=== PATIENT | female | born 2000 | race Caucasian/White ===

== ENCOUNTER 2020-06-11 05:48 | Day surgery (SDC) | payer BC, SELFPAY ==
[2020-05-18 14:30] VITALS: BMI 22.6
[2020-06-11] VITALS (8 sets, daily range): BP systolic 129–144; BP diastolic 69–88; PULSE 101–120; RESP 14–18; TEMP 36.2–36.9; O2SAT 95–100; BMI 23.5
[2020-06-11 06:26] LABS: Internal QC Validated? YES +Cl - CLEAR BKGD; Pregnancy, Urine Negative Negative
[2020-06-11] MEDS: Lactated Ringers 1,000 ML 100 ML IV ×2 (06:41→10:30)
[2020-06-11] MEDS: Epinephrine (1 mg/ml) 1 MG/ML VIAL ×2 (06:45→09:00)
--- NOTE | 2020-06-11 07:00 | HP_ITS ---
Intake Vital Signs 05/18/20 Height 5 ft 6 in 05/18/20 Weight: 140 lb 05/18/20 BMI 22.6 Intake Visit Reasons: LEFT KNEE Accompanied by: Parents Is patient in pain?: Yes Pain scale (1-10): 7 Allergies No Known Allergies Allergy (Verified 09/18/15 14:41) Medications norethindrone 1 mg-ethinyl estradiol 35 mcg tablet ea PO 05/18/20 [History Confirmed 05/18/20] Is last menstrual period known: Yes Post menopausal: No Patient : No PFSH Medical History (Updated 05/18/20 @ 14:31 by Gabriela Ansari) Hx of febrile seizure (Inactive) Social History (Updated 05/25/20 @ 16:[address] Susana Nathan DO) Smoking Status: Never smoker alcohol intake: never what type of physical activity do you participate in: running, weight training frequency: daily HPI LEFT KNEE: Details: Parts of this documentation were recorded by a scribe, this documentation accurately reflects the service provided and the decisions made by me, Dr. Susana Nathan DO 05/18/20 1375. VASQUEZ MARIE is a 19 year old F here today as a NEW patient because she has a possible left ACL tear. This initially happened 3 weeks ago during a soccer game. She was running and she states that she cut weird and she felt a pop. She was on the ground and when she got back up and tried to run again and she had significant pain so she could not run. Saw Dr. Steiner at her school and he advised an xray and MRI. After the MRI she was advised that it was torn and needed to see an orthopedic surgeon. Over the past 3 weeks she has been seeing the strainer mill operator to keep her strength up before possible surgery. She states that it was originally it was swollen and painful, the swelling has subsided.. She has been icing, ibuprofen, elevating. Denies any previous injury or surgery to that leg. Ortho Exam General General: Yes no acute distress, Yes well groomed Neurologic: Yes alert, Yes oriented x3 Psychologic: Yes reasonable and appropriate Left Knee Skin/Wound: No ecchymosis, No erythema, Yes swelling Contralateral Normal: Yes Homans Sign: No Knee ROM: Yes ROM-Extension -20 to 0, Yes ROM-Flexion 0-140 Quad Atrophy: Yes (minimal) Stability: NML: Dial 30 Assessment & Plan Problems 1. Left ACL tear S83.512A Plan - Dr. Susana Nathan, DO MRI that patient brought on disc was reviewed. [facility] faxed the MRI report while the patient was in the office. Explained to the patient that she has an ACL tear. Explained the surgery and the risks, benefits, graft types, post op course. Discussed that her taking control increases her risk of blood clots. Advised that she must be off of her control for 1 month prior to surgery and 6 weeks after surgery. She can continue with the strainer mill operator doing prehab to continue strengthening. Return to sports will not be before 9 months. 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 Will schedule tentatively for surgery 06/11/20. Patient's questions and concerns were answered. She should call with any worsening signs/ symptoms. Patient is in agreement with the plan. Coding Level of Care Code Off vis,new,level 3 Diagnoses Left ACL tear S83.512A
[2020-06-11] MEDS: Cefazolin 2 GM in 0.9% Normal Saline 100 ML IV (07:30)
--- NOTE | 2020-06-11 07:40 | HP.PCM_ITS ---
History and Physical insert HNP no changes. VASQUEZ MARIE 19 F 2000 Sign [facility] [id number] [phone] OFFICE VISITDate of Service: 05/18/20 MR#:[id number]: VASQUEZ MARIERep #:[id number]:2000 Provider:Dr. Susana Nathan DOAge/Sex: 19/F [facility] [place] [place] Intake Vital Signs 05/18/20 Height 5 ft 6 in 05/18/20 Weight: 140 lb 05/18/20 BMI 22.6 Intake Visit Reasons: LEFT KNEE Accompanied by: Parents Is patient in pain?: Yes Pain scale (1-10): 7 Allergies No Known Allergies Allergy (Verified 09/18/15 14:41) Medications norethindrone 1 mg-ethinyl estradiol 35 mcg tablet ea PO 05/18/20 [History Confirmed 05/18/20] Is last menstrual period known: Yes Post menopausal: No Patient : No PFSH Medical History (Updated 05/18/20 @ 14:31 by Gabriela Ansari) Hx of febrile seizure (Inactive) Social History (Updated 05/25/20 @ 16:[address] Susana Nathan DO) Smoking Status: Never smoker alcohol intake: never what type of physical activity do you participate in: running, weight training frequency: daily HPI LEFT KNEE: Details: Parts of this documentation were recorded by a scribe, this documentation accurately reflects the service provided and the decisions made by me, Dr. Susana Nathan DO 05/18/20 1003. VASQUEZ MARIE is a 19 year old F here today as a NEW patient because she has a possible left ACL tear. This initially happened 3 weeks ago during a soccer game. She was running and she states that she cut weird and she felt a pop. She was on the ground and when she got back up and tried to run again and she had significant pain so she could not run. Saw Dr. Steiner at her school and he advised an xray and MRI. After the MRI she was advised that it was torn and needed to see an orthopedic surgeon. Over the past 3 weeks she has been seeing the equestrian trainer to keep her strength up before possible surgery. She states that it was originally it was swollen and painful, the swelling has subsided.. She has been icing, ibuprofen, elevating. Denies any previous injury or surgery to that leg. Ortho Exam General General: Yes no acute distress, Yes well groomed Neurologic: Yes alert, Yes oriented x3 Psychologic: Yes reasonable and appropriate Left Knee Skin/Wound: No ecchymosis, No erythema, Yes swelling Contralateral Normal: Yes Homans Sign: No Knee ROM: Yes ROM-Extension -20 to 0, Yes ROM-Flexion 0-140 Quad Atrophy: Yes (minimal) Stability: NML: Dial 30 neg tono's sign Assessment & Plan Problems 1. Left ACL tear S83.512A Plan - Dr. Susana Nathan, DO MRI that patient brought on disc was reviewed. [facility] faxed the MRI report while the patient was in the office. Explained to the patient that she has an ACL tear. Explained the surgery and the risks, benefits, graft types, post op course. Discussed that her taking control increases her risk of blood clots. Advised that she must be off of her control for 1 month prior to surgery and 6 weeks after surgery. She can continue with the equestrian trainer doing prehab to continue strengthening. Return to sports will not be before 9 months. 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 Will schedule tentatively for surgery 06/11/20. Patient's questions and concerns were answered. She should call with any worsening signs/ symptoms. Patient is in agreement with the plan. Coding Level of Care Code Off vis,new,level 3 Diagnoses Left ACL tear S83.512A 05/25/20 1601<Electronically signed by Susana Nathan DO>Date Susana Nathan DO 05/27/20 0831<Electronically signed by Nuzhat NAYLOR>Cosigner Signature:Date (if applicable)Nuzhat Avelar CC: ~
--- NOTE | 2020-06-11 07:43 | PCM.DC ---
Discharge Instructions Outpatient Procedure Reason For Visit: L KNEE ARTHROSCOPY ACL RECONSTRUCTION WITH QUAD AU Follow Up Care Test Results: Test results from this visit will be discussed in further detail at your follow-up appointment, if applicable. Discharge Plan Admission Attending Provider: Susana Nathan Primary Care Provider: Derick Carlson Discharge Orders/Prescriptions Prescriptions: New oxycodone 5 mg capsule 5 mg PO Q6H PRN (Reason: pain) 4 Days Qty: 30 RF: 0 ondansetron HCl [Zofran] 4 mg tablet 4 mg PO Q8H PRN (Reason: nausea and vomiting) 7 Days Qty: 14 RF: 0 No Action norethindrone-ethin estradiol 1-35 mg-mcg tablet 1 ea PO DAILY RF: 0 Referrals: Derick Carlson MD [Primary Care Provider] - Disposition Discharge Orders: Discharge Patient (Routine); Ordered 06/11/20 Ordered By: Dr. Susana Nathan
--- NOTE | 2020-06-11 09:57 | PCM.DC ---
Discharge Instructions Outpatient Procedure Reason For Visit: L KNEE ARTHROSCOPY ACL RECONSTRUCTION WITH QUAD AU Follow Up Care Test Results: Test results from this visit will be discussed in further detail at your follow-up appointment, if applicable. brace locked in extension while ambulating and at night, make unlock brace and move as tolerated, follow up next week for dressing change, ice/elevate/ankle pumps as discussed, call with calf pain, or other concerns Discharge Plan Admission Attending Provider: Susana Nathan Primary Care Provider: Derick Carlson Discharge Orders/Prescriptions Prescriptions: New oxycodone 5 mg capsule 5 mg PO Q6H PRN (Reason: pain) 4 Days Qty: 30 RF: 0 ondansetron HCl [Zofran] 4 mg tablet 4 mg PO Q8H PRN (Reason: nausea and vomiting) 7 Days Qty: 14 RF: 0 No Action norethindrone-ethin estradiol 1-35 mg-mcg tablet 1 ea PO DAILY RF: 0 Referrals: Derick Carlson MD [Primary Care Provider] - Disposition Discharge Orders: Discharge Patient (Routine); Ordered 06/11/20 Ordered By: Dr. Susana Nathan
--- NOTE | 2020-06-11 09:58 | OP.PCM_ITS ---
Report of Operation Date of Procedure: 06/11/20 Pre-Operative Diagnosis: left acl tear Post-Operative Diagnosis: same Surgery/Procedure Performed:: left acl reconstruction with quad tendon autograft business department chair: Nik Krishnamurthy business department chair: Nuzhat Avelar Type of Anesthesia: General/Regional Anesthesiologist: Derrick Hardy Drains: none Estimated Blood Loss (mL): min Fluids Replaced: 1000ml lr Description of Procedure: Preop note Patient is a 19-year-old female who sustained an pivoting injury to her low left knee. MRI confirms complete ACL tear family [place] [facility] and wanted her knee reconstruction done locally. Patient was on control she stopped about 3- 1/2 to 4 weeks ago. Patient had a negative dial test but a positive drawer and a positive Geno's on physical exam. We discussed risk benefits and alternatives surgery. Risks including but not limited to blood loss, blood clot, infection, neurovascular, arthrofibrosis, failure procedure, loss of life and loss of limb. We will proceed with left ACL reconstruction repair as indicated patient will also go on blood thinners and closely monitor any signs symptoms of blood clots in her calves. She will also be on aspirin 325 twice daily postop day 1. Also discussed the importance of getting maintaining full extension and discussed really working on that the next 4 to 5 days. Operative note Patient seen and examined preoperative holding area. Left knee was marked. Patient brought to the operating room and placed supine on the operating table. Signing, anesthesia, antibiotics were ministered. All bony promises well-padded SCDs placed on her contralateral limb. Then prepped and draped the left knee and normal standard fashion. We marked out her incisions for portal placement and our graft procurement as well as her tunnel incisions. We then pivoted the knee she did have a positive pivot test. We began our graphic treatment. We made about a 3 and half centimeter incision starting at the proximal pole of patella extending proximally use a 15 blade dissected down with Metzenbaums to the level of the peritenon the peritenon was completely excised were then able to visualize the quad tendon we then visualize the direction and laterally and marked it about 7 cm proximally for him and guide for cut. We then use a 9 mm cutting Arthrex double knife to make our graft sides we started at the patella and proceeded proximally. We then truncated the graft at the patella side and then sequentially brought and finished the cut on the undersurface of ensuring to not invade the capsule. After procuring our graft in standard technique we prepared on the back table in standard fashion. Began our diagnostic arthroscopy. Created anterior lateral portal. The patellofemoral joint was intact there were no loose bodies or any issues with in the medial anteromedial thigh the medial and lateral recesses. We then moved to the medial anteromedial joint line where an anteromedial portal was created under direct visualization. We then probed probed the medial lateral meniscus which were intact and stable to probing. The medial femoral condyle lateral femoral condyle medial medial tibial plateau lateral tibial plateau were all intact stable probing. The ACL was obviously torn the PCL was intact. We then debrided back the stump of the ACL using shaver brake coupler road freight and then performed a minimal of notchplasty this is able to be able to get the drill guide for femoral tunnel. We then placed our scope in the medial portal our guide to the lateral portal but in the knee to 90 degrees made our incision on the lateral aspect ensuring to be on the top of the IT band nicely down with hemostat down the IT band mid small sit in the IT band and then placed our guide on the lateral aspect of the distal femur. We then drilled our tunnel we had measured the graft in the back table to be 9 mm. We then use our flip cutter and drilled back about an joule back with 25 then placed our suture in standard technique through the tunnel and irrigated out any loose bony debris. We then made our tibial move to our tibial tunnel. Placed a passport in the anteromedial portal and then placed in want visualizing from the anterior lateral portal we placed our tibial guide the main incision in the proximal tibia use a 15 blade to cut through the skin dissected down to the tibial bony surface we then drilled with our hot knife cutter flipped it back to 9 and then retrocut for about 30 mm we then irrigated with copious amounts of sterile saline any bony debris and placed our passing suture. We then brought the graft on the back table placed it through for the femoral side flipped the button and then were able to palpate the [place] button on the lateral femoral cortex. We then brought the graft through the tibial tunnel and then used the button to stick to secured on the tibial side as well. Prior to fixating the tibial side we did cycle the graft about 20 times in order to get any treatment of the graft. We then placed the knee in full extension and then were able to bring the button down to bone and then over tied the button and then truncated the stitches accordingly. We then irrigated all skin incisions with copious amounts of sterile saline the larger incisions were closed with interrupted 3-0 Vicryl and the skin with 4-0 nylon and the portals were closed with 4-0 nylon as well. Sterile dressings were applied tourniquet was deflated. Patient t olerated procedure well no complications transferred recovery room in stable condition. Patient will also had discussed getting a postop regional block. Patient be toe-touch weightbearing for 2 weeks Postop note Elevate ice ankle pumps Brace locked in extension during ambulation and at night Aspirin 325 bid to start tomorrow Toe-touch weightbearing Follow-up next week Call with increased pain numbness tingling or if there are issues arise Discussed risks and signs of a blood clot with family This note was generated with [employer] dictation software. It may contain incorrect words, spelling, and punctuation that were not noted in checking the note before signing.
[2020-06-11] MEDS: Mupirocin Ointment 22gm Tube 1 APPLIC (10:00)
[2020-06-11] MEDS: HYDROcodone Bitartrate/Apap 5/325 Tablet PO (12:46)
== END 2020-06-11 13:54 ==
LOC: SDC 05:48 → AC 05:49
PROVIDERS: Anesthesiology; PCP Pediatrics; Referring Provider Orthopaedic Surgery; Visit Provider Orthopaedic Surgery
PROC: (CPT 29888; principal; 2020-06-11 07:10)
DX: S83.512A Sprain of anterior cruciate ligament of left knee, initial encounter (principal); X58.XXXA Exposure to other specified factors, initial encounter; Y93.02 Activity, running; Z87.898 Personal history of other specified conditions
CPT/HCPCS: 01400; 29866; 29888; 64447; 81025; 87426; C9803; J7120; J2405

== ENCOUNTER 2020-07-13 09:00 | Outpatient (RCR) | payer BC, SELFPAY ==
[2020-07-08 12:59] VITALS: BMI 23.5
--- NOTE | 2020-07-13 09:00 | BH.SGPN.GN ---
Behaviors/Verbalizations/Mental Status: [] Eye contact is good. Motor activity is appropriate. Appearance is casual. Speech is Appropriate. Mood is depressed. Affect is flat. Thoughts are linear and logical. No evidence of psychosis. Reviewed daily check in sheet and no reports of suicidal ideations or intent. Client Response/Progress/Benefit: [] Pt participated when prompted. This was pt's first day in IOP and she did not speak much. 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 Group was support and provided feedback and advice for her first day and week in IOP. Pt was receptive. Limited benefit as this was pt's first day in IOP. Will continue in IOP to maintain safety, increase healthy coping skills, and improve functioning. Narrative Note: []
--- NOTE | 2020-07-13 09:00 | BH.COMM_ITS ---
Communication Note - Communication with Client Communication Note: Met with pt to complete initial paperwork. No significant changes since pre-admission screening. Compelted [place] Suicide Screening. Moderate risk. No active SI.
--- NOTE | 2020-07-13 10:10 | BH.SGPN.GN ---
Behaviors/Verbalizations/Mental Status: [] Eye contact is good. Motor activity is appropriate. Appearance is casual. Speech is Appropriate. Mood is depressed. Affect is flat. Thoughts are linear and logical. No evidence of psychosis. Client Response/Progress/Benefit: [] Pt did not participate in group discussion. Active in group activity. Attentive during psychoeducation on factors that build resiliency. Attentive and was nodding in agreement as peer defined resiliency in as bouncing back from difficult times. Attentive as peers also identified what could impact resilience which included; environment, upbringing, family MH beliefs, poverty, support, trauma, never learning coping skills, and emotions. Pt benefited by increasing awareness on the role of resilience in mental health and factors that can help build resiliency. Will continue in IOP to maintain safety, decrease impact of mental health on functioning, and prevent decompensation. Narrative Note: []
--- NOTE | 2020-07-13 11:14 | BH.SGPN.GN ---
Behaviors/Verbalizations/Mental Status: []Client alert and oriented, neatly dressed and groomed. Eye contact good. Motor activity appropriate. Speech within normal limits. Affect constricted, mood anxious. Thoughts linear, logical, no signs of hallucinations or delusions. Client Response/Progress/Benefit: []Client responded well to session, engaged and participated throughout discussion. Client participated in the discussion of how each resiliency component can help increase personal resiliency. Client worked with group to identify ways to practice each of the resiliency traits reviewed. Client shared belief client has the resiliency trait of practicing self-care. Client stated she makes time for things she enjoys and this helps client reduce stress. Client would like to work on increasing resiliency by avoiding seeing crises as insurmountable problems. Appeared to benefit from reflecting on already existing resiliency traits and learning how to strengthen resilience. First day of IOP tx. Will continue IOP tx to prevent decompensation, increase healthy coping skills, and improve daily functioning. Narrative Note: []
--- NOTE | 2020-07-14 10:25 | BH.NA_ITS ---
Physical Data - Vital Signs Pulse Rate: 92 Blood Pressure: 135/74 - Height/Weight Height: 1.68 m Weight:: 63.503 kg Weight in Pounds: 140.0 lbs Nutritional History - Appetite Nutritional Instructions:: If client shows signs of a swallowing problem, weight change of 10 pounds or more in the last month, or is on a diabetic diet, the physician will review and request a dietitian consult, as appropriate. All unintentional weight loss will be referred to the physician for decision on need for dietitian consult. Describe your appetite:: Good Functional Assessment - Sleep Pattern Describe any problems with sleeping: Client states she sleeps usually 7-8 hours, but does state she has problems falling asleep and staying asleep at times. - Activities Motor Activity:: Functional Sensory/Communication Assess - Communication Problems Do you have difficulty understanding what people are saying?: No Learning Assessment - Education What is your level of education?: Some College Medical Problems/History - Pain Assessment Do you have acute or chronic pain?: Yes - recent ACL reconstruction surgery - Additional History Additional comments:: febrile seizure as a child- none as an adult Surgical History - Surgical History Have you had any surgeries? If so, list type and date:: Yes - left knee ACL 06/11/20 Substance Abuse - Substance Abuse Please describe substance abuse in the last 30 days:: Client states occasional social alcohol use. Client denies tobacco, drug, or caffeine use. Mental Status Summary - Mental Status Significant Findings/Observations on Appearance and Mood:: Client is alert and oriented x 4. Client is casually groomed. Client is wearing a mask due to the COVID 19 pandemic. Client makes fair eye contact. Client's voice has normal rate, slightly soft volume. Client has somewhat flat affect. Client makes logical associations. Client denies delusions/hallucinations. Client has fleeting daily SI. Suicide Assessment - Suicidal Ideation Are you currently or have you been suicidal in the past?: Yes - daily fleeting SI Suicidal Intentional Rating Scale (SIRS): Current suicidal thoughts/No plan/Contracts for safety Physician Notification: If Active suicidal thoughts/Will not contract for safety is checked, contact physician and document in the Physician Notification section below. Assault History/Potential Past Psychiatric History - MH Treatment Hx Past Psychiatric Medications:: None Age of first mental health symptoms: Client states she has been having symptoms of depression since about the age of 17. Current providers for mental health treatment (counselor, psychiatrist, case management social worker, etc.): None Fall Risk Assessment - Age Age: Less than 60 - Mental Status Mental Status: Willing & able to ask for assistance when needed - Physical Status Physical Status: No problems - immobilizer brace for left knee - Impairments Impairments: None - Elimination Elimination: Continent AND independent - Gait or Balance Gait or Balance: Walks independently - Hx of Falls History of falls in the past 6 months: No known history - Medications/Substances Medications/substances used within the past 24 hours or ordered to administer: None of the medications/substances list above - Total Score Total Points:: 0 RN Summary of Impressions - Impressions Recommendations: Include psychiatric and medical issues, treatment planning recommendations, and discharge planning needs. Impressions: Psychiatric Issues: Major depressive disorder, recurrent, severe without psychosis; social anxiety disorder; generalized anxiety disorder - Level of Care How do the client's current symptoms and functional deficits support need for this level of care?: Client was referred to IOP program after recent ACL surgery on left leg. Client states she has been having symptoms of depression for the past 2-3 years. Client states she did go to counseling for a short period of time prior to going to college, but stopped going to counseling. Client states depression symptoms have recently worsened after left ACL surgery on 06/11/20. Client admits to self-injury behaviors at times, reporting she last cut herself on her arms a few weeks ago but denies open areas to arms at this time. Client endorses feelings of isolation, ruminations, crying spells, and feeling sad. Client reports daily SI that is fleeting and denies plan. IOP will promote gains and prevent further decompensation while providing social support and skills training.
[2020-07-14 10:43] VITALS: BP 135/74; PULSE 92
--- NOTE | 2020-07-14 11:15 | BH.SGPN.GN ---
Behaviors/Verbalizations/Mental Status: []Client alert and oriented, casually dressed and groomed. Eye contact good. Motor activity appropriate. Speech within normal limits. Affect congruent, mood anxious, dysthymic. Thoughts linear, logical, no apparent hallucinations and delusions. Client Response/Progress/Benefit: [] Client new to IOP program, remained an active participant throughout AEB client providing input throughout session, taking notes, and completing group activity. Attentive and contributing during psychoeducation and additional discussion on cognitive distortions, providing personal examples throughout. Client engaged while group practiced reframing example thoughts on the board. Client then worked within their small group to identify potential thought-challenge strategies for specific types of distortions. Client shared struggling with distortion of ?disqualifying the positives? and identified using a personal ?wins? journal and making an effort to identify positives when catching herself looking at the negatives as skills she would like to use to combat this distortion. Client seemed to benefit from reframing distorted thoughts and brainstorming several skills for challenging distortions. Will continue IOP tx to prevent decompensation and continue to improve depression management. Narrative Note: []
--- NOTE | 2020-07-14 12:39 | PCM.BH.PSYEV ---
Psychiatric Evaluation Initial Evaluation Initial Evaluation: History of Present Illness: [] The patient is a 20-year-old single female who is currently living with her parents and older brother since coming home from college a few months ago. Patient attends college at [employer] and placed on the soccer team there. She tore her ACL in April 2020 while playing soccer and then required surgery June 11, 2020. She had to leave school before the semester ended in order to have her ACL treated and she is this kind of messed up her schedule and she is not pleased about that. She states however that she was depressed prior to tearing her ACL and has been depressed fairly often for the past few years. She was referred to the [facility] program by her family. Her depression symptoms worsened in the past 2 months. She feels that she lays around all day at home and is unable to exercise and feels that she is fat. She admits that her weight has not changed but she states that she has a tendency to feel fat if she is unable to exercise a lot. She denies over exercising except last summer she did over exercise for 2 to 3 hours a day in order to feel okay about her body. But she states that since then other than normal soccer practices she has not over exercised. College is on summer break now. Recent stressors besides her knee injury include a high school friend of a friend who committed suicide a few months ago and the patient had a boyfriend of 2 years who she broke up with 2 months ago. She feels it was the right thing to break up but this may have contributed to her symptoms. She currently does rehab for her knee 2-3 times a week and does other rehab exercises daily at home. She endorses feeling sad and crying. She feels hopeless and worthless. She has no motivation and is not enjoying anything but being with her family lately. Her appetite is erratic but works out to maintaining normal weight. She sleeps about total of 7 to 8 hours a night but initially she has some trouble getting to sleep and wakes up a few times during the night. She does take some naps during the day. She does not feel rested matter how much she sleeps. She has a low energy level and is tired during the day. Concentration she said feels is okay overall. She is a worrier by nature and ruminates negatively. She denies panic attacks, OCD, eating disorder, trauma, PTSD. She had a history of self-harm by cutting her arm in August 2018 but no self-harm still since and no stitches required. She has passive thoughts during the day and occasional urges to cut but is able to resist this. She has some suicidal ideation which she denies that it is active but patient may be minimizing. She has a history of anxiety in social situations and describes herself as quiet and somewhat shy. For primary support she has 1 online friend whom she has never met in person and her mother. She does not talk to her friends in person about her troubles because she has not found that helpful in the past. She identifies as heterosexual but does not have a boyfriend currently. Current Psychiatric Medications: [] Has never taken any psych medication. Past Psychiatric History: [] No psych admissions ever. No suicide attempts ever. She first self harmed by cutting at age 16 and then cut until August 2018 but never required stitches. She was first depressed at age 15 but never took medication. She had counseling around age 16 when she told her mother that she was depressed and thought she needed counseling but she only went to a few appointments as she did not did not like the counselor. Substance Use History: [] Non-smoker. No marijuana use. No drug use. Alcohol use 1 drink every few months. No rehab ever. Allergies: [] No known allergies Medications: [] Psych medication only. Past Medical History: [] ACL surgery in June 11, 2020. She has regular menstrual periods and was on control pills prior to surgery and plans to go back on when they tell her she can. She is a 0 para 0 female and is not sexually active. She is heterosexual. Family Psychiatric History: [] There is a history of depression in her mother and brother and they are on medication which she agrees to find out what meds they are on. No suicides in the family. No substance or drug issues in the family. Mother and father are 56 and 57 years old and a relatively healthy. Personal/Social History: [] Patient was born and raised in [place] and describes her childhood as normal, pretty happy. She was always very quiet and shy but her parents are both loving and supportive. She has a brother 2 years older and a brother 5 years older than her and they are close. She denies any verbal, physical or sexual abuse ever. 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 Her grades are okay and she plans to work with animals in some way after graduation. She has 3 cats and a dog and really enjoys her pets. She is taking 1 cat back to school with her when she returns to school. She has through 3 college roommates and they get along okay and her room she shares with one close friend. She hated having to leave school early and she did not mind coming home but now feels somewhat that it is worsened her depression being home. She had 1 serious boyfriend only which was a relationship for 2 years that she ended a few months ago because she felt they did not have a future. She does not regret ending the relationship. Legal History: [] No arrests. No DUIs. Has petrol tanker driver's license. Review of Systems: [] Knee discomfort from her recent ACL surgery. Otherwise negative. Vital Signs: [] Reviewed in nurses notes. Mental Status Examination: [] Patient is a 20-year-old female who is seen wearing a mask due to the pandemic and also has a brace on her left leg. Her gait is somewhat slow with a slight limp. She has no psychomotor agitation or retardation. Eye contact is fair overall and good at times. She is somewhat reticent but is cooperative and pleasant during the interview. Speech is normal rate and rhythm and fluent with no pressure. Mood is depressed. Affect is constricted. Thought process is goal-directed and organized. Thought content: There is evidence of passive thoughts of and some passive suicidal ideation. There is some evidence of occasional urges to self-harm but has been able to resist this. There is no evidence of hallucinations, delusions or symptoms of jv. There is no evidence of homicidal ideation, plan for suicide or active suicidal ideation. Diagnoses: [] [place] I: [] Major depressive disorder, recurrent, severe without psychosis; social anxiety disorder; generalized anxiety disorder [place] II: [] Deferred [place] III: [] Recent ACL surgery [place] IV: [] Primary support, school issues Plan: [] The patient will start the [facility] program in behavioral health at [facility] as the structure, support, education, and group therapy will hopefully prevent worsening of the patient's symptoms which might require hospitalization. She felt safe during the interview and if it anytime she does not feel safe she agrees to let us know or go to the emergency room. The risk, options, possible complications and side effects of the medications were discussed with the patient and she understands accepts these. The patient called her mother on the phone and found out that her mother and brother do well on Zoloft. The patient agrees to start Zoloft 50 mg p.o. daily. I will see the patient in follow-up in 1 week. The patient will continue to follow-up with her medical and outpatient providers.
--- NOTE | 2020-07-14 12:51 | BH.DR.ITP ---
Initial Treatment Plan Patient Information Visit Information: ADMISSION DATE: EXPECTED LOS: 4-6 weeks Problems/Symptoms Problem #1:: Depression Symptom:: Sadness, hopelessness, worthlessness, passive thoughts of , passive suicidal ideation, anhedonia, decreased concentration Problem #2:: Anxiety Symptom:: Worry, rumination, difficulty in social situations
--- NOTE | 2020-07-16 09:00 | BH.SGPN.GN ---
Behaviors/Verbalizations/Mental Status: [] Eye contact is good. Motor activity is appropriate. Appearance is casual. Speech is Appropriate. Mood is anxious. Affect is congruent. Thoughts are linear and logical. No evidence of psychosis. Reviewed daily check in sheet and pt reports 1/5 for suicidal thoughts and 0/5 for intent. Client Response/Progress/Benefit: [] Pt participated when prompted. Attentive. Emotion for today is anxious and worried. Daily symptom tracker notes 3/5 for anxiety. Shared that she has started to gain more insight into coping skills. Utilized oppositve-action yesterday and reached out to support. Talked with support for over 5 hours. Decreased isolation and increase self-care. Progress noted per pt report. Reports that sharing in group is very challenging for her. Group empathized. Benefited from group support, feedback, and encouragement. Will continue in IOP to increase healthy coping, stabilize mood, and prevent decompensation. Narrative Note: []
--- NOTE | 2020-07-16 10:10 | BH.SGPN.GN ---
Behaviors/Verbalizations/Mental Status: []Client alert and oriented, casually dressed and groomed. Eye contact good. Motor activity appropriate. Speech within normal limits. Affect constricted, mood anxious. Thoughts linear, logical, no signs of hallucinations or delusions. Client Response/Progress/Benefit: []Client receptive to session, participating throughout. Provided input as the group brainstormed the positive and negative aspects of stress on physical and mental health. Group did well to identify the benefits of stress as well as the impact of distress on performance and mental health. Client identified stress jar includes: mental health, losing friends, break up, ACL surgery recover, finishing a college course, no job, and school starting back up again. Client reports when her stress jar becomes overfilled her reaction is irritable, shutting down, isolating, and increased depression/anxiety. Pt seemed to benefit from increased awareness of current stressors and importance of dealing with stressors. Recommended to continue IOP tx to promote use of healthy coping skills, reduce negative thinking, and prevent decompensation. Narrative Note: []
--- NOTE | 2020-07-16 11:15 | BH.SGPN.GN ---
Behaviors/Verbalizations/Mental Status: []Client alert and oriented, neatly dressed and groomed. Eye contact good. Motor activity appropriate. Speech within normal limits. Affect constricted, mood depressed. Thoughts linear, logical, no signs of hallucinations or delusions. Client Response/Progress/Benefit: []Client engaged in session AEB listening attentively to others, taking notes, and participating in activity. Client remained attentive during discussion about the 4 A's of managing stress and discussed connecting with the various benefits of each. Client was interactive during group activity and seemed to disconnect when the activity became challenging. Client did not select a strategy to try, but she was given a handout on the 4 As of managing stress, so she has coping tips. Appeared to benefit from learning different techniques to better manage stress. Client?s first week of IOP tx. Client will continue IOP tx to prevent decompensation, learn healthy coping skills, and reduce negative self-talk. Narrative Note: []
--- NOTE | 2020-07-20 09:00 | BH.SGPN.GN ---
Behaviors/Verbalizations/Mental Status: []Client alert and oriented, neatly dressed and groomed. Eye contact good. Motor activity appropriate. Speech within normal limits. Affect constricted, mood depressed and anxious. Thoughts linear, logical, no signs of hallucinations or delusions. Reviewed client?s symptom tracker, no risk for suicidal ideation, plan, or intent as of 07/20/20 Client Response/Progress/Benefit: []Client responded well to session, engaged and receptive to feedback. Client reports feeling exhausted this morning and shared this weekend was a struggle. Client noted she tried to challenge her negative thinking by using a positive mental filter and looking at her wins. Client shared she did an anxious thing this weekend by talking to people at a graduation green party rather than withdrawing. Client reports feeling sick lately in the mornings which causes client to lay in bed a lot and leads to negative self-talk. Group helped client challenge negative self-talk and reviewed healthy coping skills to help with this such as opposite action. Appeared to benefit from getting feedback from peers. Progress noted as client worked on using thought reframing. Will continue IOP tx as client continues to endorse depressive symptoms that impact functioning and to prevent decompensation. Narrative Note: []
--- NOTE | 2020-07-20 10:05 | BH.SGPN.GN ---
Behaviors/Verbalizations/Mental Status: [] Eye contact is good. Motor activity is appropriate. Appearance is casual. Speech is Appropriate. Mood is depressed. Affect is flat. Thoughts are linear and logical. No evidence of psychosis. Client Response/Progress/Benefit: [] Pt was an active participant in group discussion and activity. Attentive during psychoeducation. Group identified the benefits of making changes or taking action on their mental wellness which included; increased confidence, healthier relationships, improved emotional health, reduction of anxiety, increased awareness, and improved recognition of triggers. Pt stated that the 3 biggest obstacles for her are depressive thoughts, toxic relationships, and difficulty letting go. Increased awareness of importance of taking action in mental health and obstacles that keep them from taking action. Will continue in IOP to decrease isolation, increase healthy coping strategies, and maintain dafety. Narrative Note: []
--- NOTE | 2020-07-20 13:44 | BH.MDN ---
Multi-Disciplinary Note - Note 60-min Individual Time Started:: 11:45 Date: 07/20/20 Purpose of session/treatment goals addressed:: The purpose of this session was to gather information on client's current stressors, symptoms, and treatment goals. Another goal was to build rapport and provide psychoeducation. Eye Contact:: Good Motor Activity:: Appropriate Appearance:: Casual Speech:: Soft Mood:: Dysthymic Affect:: Constricted Thoughts:: Linear, Logical, No evidence of hallucinations/delusions noted Staff Interventions:: Therapist used active listening and open-ended questions to explore client's current stressors, symptoms, and treatment goals. Therapist used strengths perspective to build rapport and provide emotional support. Therapist provided psychoeducation on maintainance cycles. Client Response:: Client responded well to session, open to meeting with therapist. Client stated she has been enjoying IOP so far, but she wants to talk more during sessions. Client shared she has only been in therapy once before when she was a senior in high school. Client stated at the time client did not find it helpful. Client reports she has been depressed on and off since she was a sophomore in high school. Client states her mother and brother also struggle with depression, but her father does not understand mental health. Client is very close with her father, so client is concerned about this. Client identified numerous stressors contributing to her depression. These included recent ACL surgery, leaving school early, friendship issues, unrealistic expectations, and recent breakup. Receptive to psychoeducation on depression and connected with the maintenance cycle for depression. Client identified common thoughts and behaviors she engages in when depressed and able to recognize how these reinforce depression. Client also reports she tends to have unrealistic expectations for herself which only worsens depression. Receptive to practicing opposite action for homework and was provided a worksheet on behavioral activation. Risks/Concerns:: Client reports passive thoughts of , but denies any active suicidal ideations, plan, or intent as of 07/20/20. Future oriented and reporting being excited about a class in the fall. Progress Toward Goals/Plan:: Client is starting her second week of IOP tx. Client reports she is enjoying the program and she is trying to push herself out of her comfort zone. Client currently endorses a depressed mood, lack of energy, anhedonia, lack of motivation, negative thinking, thoughts of , and isolative behaviors. Client's goals are to learn how to let go of stressors out of her control, reduce what ifs, think more positively, and reduce depression. Time Stopped:: 12:40
--- NOTE | 2020-07-20 13:44 | BH.MTP ---
Master Treatment Plan - Patient Information Program Physician:: Dr. Yolanda Barrett Primary Therapist:: Ramila RAHMAN - Psychiatric Diagnoses Psychiatric Diagnoses:: Major depressive disorder, recurrent, severe without psychosis F33.2; social anxiety disorder; generalized anxiety disorder Diagnosis Code(s):: F 33.2 - Estimated LOS Estimated LOS (in weeks):: 6 Problem/Goal #1 - Problem/Goal #1 Stated Goal:: Client will decrease depressive symptoms, isolation, negative self-talk, and passive wishes due to major depression disorder. Description of Barriers: Client is not currently connected to outpatient mental health services. Unable to engage in activities that used to help client cope such as sports and exercise. Endorses isolative behaviors and negative thinking patterns. Functional Impact: Client is a 20-year-old female with a history of depression and anxiety. Client was referred to [facility] tx by her family due to worsening depression for the past two months. Client currently endorses poor sleep, poor concentration, rumination, and thoughts of most days. Client tore her ACL in April of this year and had surgery which further exacerbated her depression and anxiety. Client has not been able to be as active and has been sleeping/isolating most days. Mental health was impacting client's grades in college and has been impacting her socialization. Goal Relevant Strengths/Supports: Client has support from her family. Open to therapy and learning new skills. - Objectives Objective #1 Stated Objective: Client will learn and utilize 2-3 healthy coping strategies to better manage depressive symptoms as shown by a reduced DSM-5 scores for depression. Interventions: Through group and individual sessions, therapist will help client identify triggers and warning signs of depression and emotional dysregulation including emotional, physical, and behavioral changes. Therapist will teach client various coping skills to manage her symptoms and give client tangible resources to use to regulate emotions. Therapist will use cognitive restructuring techniques and help client gain awareness of negative thoughts that reinforce guilt and depression. Therapist will provide psychoeducation on maintenance cycles and help client learn ways to break unhealthy maintenance cycles. Therapist will help client incorporate behavioral activation and assist client in setting SMART goals. Discharge Criteria: Client will have met this goal when she can report learning and using at least 2 coping skills to manage depressive symptoms. Additionally, client will have met this goal when her depressive symptoms have reduced on the DSM-5 scale. Target Date: 08/24/20 Review Date: 08/10/20 Status: open Objective #2 Stated Objective: Client will identify at least 2-3 negative self-talk messages used to reinforce negative core beliefs and replace thoughts with positive, realistic messages. Interventions: Therapist will help client identify distorted, negative beliefs about self and replace with more realistic, affirmative messages. Therapist will use CBT to help client increase insight to the connection between thoughts, emotions, and behaviors. Therapist will encourage client to practice thought challenging. Discharge Criteria: Client will have achieved this goal when can verbalize at least 2 negative self-talk messages and effectively replace those thoughts with affirmative messages. Target Date: 08/24/20 Review Date: 08/10/20 Status: open Problem/Goal #2 - Problem/Goal #2 Stated Goal:: Client will reduce anxiety symptoms while increasing ability to function on daily basis. Description of Barriers: Client is not currently connected to outpatient mental health services. Unable to engage in activities that used to help client cope such as sports and exercise. Endorses isolative behaviors and negative thinking patterns. Functional Impact: Client is a 20-year-old female with a history of depression and anxiety. Client was referred to [facility] tx by her family due to worsening depression for the past two months. Client currently endorses poor sleep, poor concentration, rumination, and thoughts of most days. Client tore her ACL in April of this year and had surgery which further exacerbated her depression and anxiety. Client has not been able to be as active and has been sleeping/isolating most days. Mental health was impacting client's grades in college and has been impacting her socialization. Goal Relevant Strengths/Supports: Client has support from her family. Open to therapy and learning new skills. - Objectives Objective #1 Stated Objective: Client will identify 2-3 anxiety triggers and 2 coping skills to use when feeling anxious to manage anxiety as shown by decreasing her DSM-5 scores for anxiety. Interventions: Therapist will provide education on anxiety, avoidance behaviors, and maintenance cycles. Therapist will help client explore personal symptoms and warning signs of anxiety. Therapist will teach client coping skills to improve emotional regulation, mindfulness, and distress tolerance to help client cope with anxiety in the moment. Discharge Criteria: Client will have accomplished this goal when she can identify at least 2 triggers and report using 2 coping skills to manage anxiety. Additionally, client will have accomplished this goal when her DSM-5 scores show a reducion for anxiety. Target Date: 08/24/20 Review Date: 08/10/20 Status: open Objective #2 Stated Objective: Client will identify 2-3 cognitive distortions that lead to rumination and learn 2-3 ways to manage these thoughts to better manage anxiety Interventions: Therapist will provide education on the most common cognitive distortions and teach client the connection between thoughts, emotions, and feelings. Therapist will assist client in identifying, challenging, and replacing dysfunctional thoughts with positive, more realistic thoughts. Therapist will use CBT and DBT techniques to help client gain awareness of thinking errors and learn how to more effectively handle negative thoughts. Therapist will also use self-compassion to help client set more realistic expectations for herself. Discharge Criteria: Client will have accomplished this goal when can identify at least 2 cognitive distortions and at least 2 coping skills to manage negative thoughts. Target Date: 08/24/20 Review Date: 08/10/20 Status: open
--- NOTE | 2020-07-20 13:45 | BH.PSA ---
Source of Information - Presenting Problems/Circumstances Problems, Referral Source, Mental Status, Client: Client is a 20-year-old female with a history of depression and anxiety. Client was referred to [facility] tx by her family due to worsening depression for the past two months. Client currently endorses poor sleep, poor concentration, rumination, and thoughts of most days. Client tore her ACL in April of this year and had surgery which further exacerbated her depression and anxiety. Client has not been able to be as active and has been sleeping/isolating most days. Mental health was impacting client's grades in college and has been impacting her socialization. Psychiatric Presentation - Psych Issues & Need for Admission Psychiatric Issues:: Major depressive disorder, recurrent, severe without psychosis F33.2; social anxiety disorder; generalized anxiety disorder Past Psychiatric History - Treatment Hx Treatment History: Client denies any hospitalizations and denies history of suicide attempts. Client first self-harmed by cutting at age 16 and then cut until August 2018 but this never required stitches. Client was first depressed at age 15 but never took medication. Client had counseling around age 16 when she told her mother that she was depressed and thought she needed counseling, but she only went to a few appointments as she did not did not like the counselor.? First hospitalization:: none reported Most recent hospitalization:: none reported Medication Trials:: Yes ECT Therapy:: No Age of first mental health symptoms: see treatment history Describe (age, circumstance, etc) any past hospitalizations: Client denies any hospitalizations. Current providers for mental health treatment (counselor, psychiatrist, dependency case manager, etc.): no current mental health providers. Client's PCP prescribes client's medications. Development & Family of Origin - Childhood Significant Childhood Events: Client describes her childhood as pretty happy and reports her parents have always been loving. - Family Who currently lives in your home?: Client lives at home during the summer months when she is home from college. Client lives with her mother and father. Describe family composition:: Client's parents are and client describes them as loving and supportive. Client has a brother two years older and a brother five years older and client is close to her brothers. Client is not currently in a relationship. No children. - Family History Family Hx of Psychiatric or AOD Problems: There is a history of depression in her mother and brother and they are on medication. No suicides in the family. No substance or drug issues in the family Ethnicity - Culture Do you identify yourself with any particular cultural, ethnic background, or community?: No - Sexuality Sexual Orientation: Heterosexual Mental Status - Memory Recent Memory: Fair Remote Memory: Poor - Concentration Concentration: Fair - Eye Contact Eye Contact: Fair - Speech Speech: Soft - Thought Process Thought Process: Ruminations Insight: Poor Judgment: Fair Behavior: Anxious - Orientation Orientation: Time, Person, Place, Situation - Appearance Appearance: Appropriate - Mood Mood: Anxious, Depressed - Affect Affect: Constricted Suicide Assessment - Suicidal Ideation Have you ever felt like hurting yourself?: Yes Were you using ETOH/drugs at the time?: No Suicidal Intentional Rating Scale (SIRS): Current suicidal thoughts/No plan/Contracts for safety - Evidence of passive thoughts of and some passive suicidal ideation. There is some evidence of occasional urges to self-harm but has been able to resist this. Client denies any intent to act on her passive SI. Physician Notification: If Active suicidal thoughts/Will not contract for safety is checked, contact physician and document in the Physician Notification section below. Violent Behavior/Abuse History - Homicidal Ideation Do you have any homicidal thoughts? If so, explain:: No Is there a known potential victim? If yes, who:: No - Abuse Have you ever been abused?: No - Life Events Are there any other significant life events?: , Hardships Describe significant life events: Recent stressors besides her knee injury (recent ACL surgery) include a high school friend of a friend who committed suicide a few months ago. Client also went through a breakup two months ago and she had to leave college early due to her knee injury. - Safety Do you ever feel threatened in your home? If yes, describe:: No Adult Social History - Age 17 to Present Describe your current support system:: Client has her mother, an online friend, and one friend from college that she can talk to about stressors. Substance Use - Substance Substance Use Type: Alcohol - Alcohol use 1 drink every few months. Client denies any other substance use. Leisure/Social Activities - Interests What do you enjoy or might be interested in learning about?: Client loves animals, exercising, and listening to music. 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. Do you have any learning disabilities?: No - Occupation List any current or past employment:: Client is not currently working. 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 Service - Service Have you ever been in the ?: No Legal History - Records Have you had any past legal charges?: No Do you have any current legal charges?: No Have you ever been incarcerated? If yes, describe:: No - Court Orders Have you had any past court orders for psychiatric treatment?: No Do you have a present court order for psychiatric treatment?: No Problem Checklist - Current Problem Areas Problem List: Nutritional/Eating pattern changes, Pain management, Depressed mood/sad, Anxiety, Inattention, Impulsivity, Sleep problems, Pertinent health issues - recent ACL surgery. Currently receiving PT, Additional psychosocial stressors Discharge Planning Needs - Anticipated Follow-Up Mental Health Center (Name/Phone Number):: n/a Private Therapist/Psychiatrist:: n/a Primary Care Physician: [facility] Contacts: n/a Deputy Jailer Name/Phone Number: n/a Fly Worker's Assessment - Client's Needs What are the client's goals?: Client's goals are to learn how to let go of stressors out of her control, reduce what ifs, think more positively, and reduce depression. What are the client's strengths?: Client has support from her family. Open to therapy and learning new skills. Diagnoses - Diagnoses Diagnosis #1:: Major depressive disorder, recurrent, severe without psychosis F33.2 Diagnosis #2:: social anxiety disorder Diagnosis #3:: generalized anxiety disorder Interpretive Summary - Interpretive Summary Interpretive Summary: The client is a 20-year-old single female who is currently living with her parents and older brother since coming home from college a few months ago. Client attends college at [employer] and played on the soccer team there. Client tore her ACL in April 2020 while playing soccer and then required surgery June 11, 2020. Client had to leave school before the semester ended in order to have her ACL treated which client believes is one trigger for her depression. Client states however that she was depressed prior to tearing her ACL and has been depressed fairly often for the past few years. Client was referred to the [facility] program by her family. Client?s depression symptoms worsened in the past two months and client reports she feels that she lays around all day at home and feels that she is fat.? Client admits that her weight has not changed but she states that she has a tendency to feel fat if she is unable to exercise a lot. Client denies over exercising except last summer she did over exercise for 2 to 3 hours a day to feel okay about her body. Recent stressors besides her knee injury include a high school friend of a friend who committed suicide a few months ago and a recent breakup which was desire by client. Client currently does rehab for her knee 2-3 times a week and does other rehab exercises daily at home. Client currently endorses sadness, crying spells, hopeless, and worthless. Client has no motivation and is not enjoying anything except being with her family lately. Client?s appetite is erratic, but client is normal weight. Client sleeps about total of 7 to 8 hours a night but initially she has some trouble getting to sleep and wakes up a few times during the night. Client does take some naps during the day and reports she does not feel rested matter how much she sleeps. Client reports feeling tired throughout the day. Client is a worrier by nature and ruminates negatively- mostly negative self-talk statements. Client denies panic attacks, OCD, eating disorder, trauma, PTSD. Client had a history of self-harm by cutting her arm in August 2018 but no self-harm still since and no stitches required. Client has passive thoughts during the day and occasional urges to cut but is able to resist this. Client has some suicidal ideation which client reports are passive. Client denies any history of suicide attempts. Client has a history of anxiety in social situations and describes herself as quiet and somewhat shy. Client has family history of depression and anxiety. Client reports occasional alcohol use and denies any other substance use. Treatment Plan Recommendations - Recommendations Guidelines: Special needs identified to be included in the development of an individualized treatment plan regarding past psychiatric history and treatment, developmental events, family relationships/events/culture, past and/or current educational, occupational, social, and residential experience, and legal status. Recommendations:: Client will start the IOP program in behavioral health at [facility] as the structure, support, education, and group therapy will hopefully prevent worsening of client?s symptoms which might require hospitalization. She felt safe during the interview and if it anytime she does not feel safe she agrees to let us know or go to the emergency room. The risk, options, possible complications and side effects of the medications were discussed between client and IOP psychiatrist. Client and IOP therapist will set up aftercare services for client.
--- NOTE | 2020-07-21 09:00 | BH.SGPN.GN ---
Behaviors/Verbalizations/Mental Status: [] Eye contact is good. Motor activity is appropriate. Appearance is casual. Speech is Appropriate. Mood is anxious. Affect is congruent. Thoughts are linear and logical. No evidence of psychosis. Reviewed daily check in sheet and no reports 1/5 for suicidal thoughts and 0/5 for intent. Client Response/Progress/Benefit: [] Pt participated at times during the group discussion. Attentive. Daily symptom tracker notes 3/5 for anxiety and 1/5 for depression. Shared that she was proactive yesterday to avoid isolation and sleeping to cope. She knew if she went to her room she would have slept the day away. Reports that her room is her comfort zone. She napped on the couch instead and interacted with family. Upcoming stressors in September which she is ruminating on currently. Stressor involves having to complete a course in person. This course is difficult and per pt she it will be one on one with the professor, she will have to take tests alone, and complete lab alone. Unable to see any benefits and reports that this stressors is ruining her excitement for returning to classes. Group challenged some negative thoughts. Some progress noted per pt. Benefited from group support and feedback. Will continue in IOP to maintain safety, increase healthy coping, and decrease isolation. Narrative Note: []
--- NOTE | 2020-07-21 10:05 | BH.SGPN.GN ---
Behaviors/Verbalizations/Mental Status: []Eye contact is fair. Motor activity is appropriate. Appearance is casual. Speech is Appropriate. Mood is dysthymic. Affect is constricted. Thoughts are linear and logical. No evidence of psychosis. Client Response/Progress/Benefit: []Pt was an engaged participant in group discussions. Attentive during psycho-education on 4 types of conflict styles (Competing, Collaborating, Avoiding, and Accommodating). Worked with group to define conflict and identify how conflict is helpful; (allows us to grow, helps us stand up for ourselves, empowers us, helps clarify, and helps us gain clarification). With peers identified what prevents them from addressing or managing conflict which included: emotions, past experiences, fear, upbringing, what ifs, and worried how other person will react. Pt believes her conflict style is accommodating and avoiding the drawbacks being negative self talk, low self-esteem, and needs not met. Benefited from group due to increase insight and awareness of conflict, conflict styles, and obstacles to managing conflict. Pt to continue IOP to increase healthy coping, improve daily functioning and prevent decompensation. Narrative Note: []
--- NOTE | 2020-07-21 11:08 | BH.SGPN.GN ---
Behaviors/Verbalizations/Mental Status: []Client alert and oriented, neatly dressed and groomed. Eye contact good. Motor activity appropriate. Speech within normal limits. Affect congruent, mood dysthymic. Thoughts linear, logical, no signs of hallucinations or delusions. Client Response/Progress/Benefit: []Client engaged in session AEB contributing to discussion and engaging in activity. Client did well to review current conflict style and its impact on mental health. Attentive and taking notes during discussion on strategies for more effectively managing conflict in own life. Client identified wanting to work on addressing conflict rather than avoiding conflict. Client shared she tends to be accommodating rather than expressing her needs. Client plans to work on this by focusing not ?stonewalling? or shutting down when faced with conflict. Appeared to benefit from gaining strategies to help client better manage conflict. Will continue IOP tx to prevent decompensation, gain healthy coping skills, and improve daily functioning. Narrative Note: []
--- NOTE | 2020-07-21 12:12 | PCM.BH.PN_ITS ---
Progress Note Progress Note: Progress Note Progress Note: The patient is a 20-year-old female who is seen in follow-up at the [facility] behavioral health IOP program. The patient was last seen 1 week ago. She states that she started her Zoloft about 1 week ago. It was difficult to get a history from the patient and as the interview went on she apologized for being a poor historian and informed me that she complained of nausea and and dizziness in the past several days. She had stated that or given the impression that was due to the Zoloft which she started 1 week ago. Penitentiary through the interview the patient said that she actually drank alcohol about 4 drinks several days ago and the nausea and dizziness started the day after she used alcohol. She has not changed in status or mood much in the past week. She remains somewhat depressed and has a low energy level and is tired during the day. She has no history of self-harm. She has some passive suicidal ideation but denies any active suicidal thoughts or plan for suicide. Objective: Patient appears normal for stated age and is casually d ressed and groomed with good hygiene and is seen wearing a mask due to the pandemic. Eye contact is good and speech is normal rate and rhythm and fluent with no pressure. Mood is depressed. Affect is constricted. Thought process is goal-directed and organized. Thought content: There is evidence of some passive thoughts of and passive suicidal ideation. There is no evidence of urges to self-harm or active suicidal ideation. There is no evidence of hallucinations, delusions or homicidal ideation. Impulsivity is moderate. Insight: Improving. Judgment: Intact. Diagnosis: #1 (major depressive disorder, recurrent, severe without psychosis; #2 social anxiety disorder; #3 generalized anxiety disorder. Primary support and school issues. Plan: The patient will continue the IOP program at [facility] as the structure, support, education and group therapy will hopefully prevent worsening of the patient's symptoms which might require hospitalization. She felt safe during the interview and if it anytime she does not feel safe she agrees to let us know or go to the emergency room. The risks, options, possible complications and side effects of medications were discussed with the patient and she understands and accepts these. The patient wishes to continue the Zoloft at 50 mg daily as she does not feel that it was involved in the nausea and dizziness. She was given the option of stopping it and starting Wellbutrin but she refused. She will continue to follow-up with her outpatient psychiatric providers and I will see the patient in follow-up in 1 to 2 weeks.
--- NOTE | 2020-07-22 09:05 | BH.SGPN.GN ---
Behaviors/Verbalizations/Mental Status: [] Eye contact is good. Motor activity is appropriate. Appearance is casual. Speech is Appropriate. Mood is anxious. Affect is congruent. Thoughts are linear and logical. No evidence of psychosis. Reviewed daily check in sheet and no reports of suicidal ideations or intent. Client Response/Progress/Benefit: [] Pt participated when prompted. Attentive. Emotion for today is uncertain. Mental health wins included self-care yesterday in which she spent more time outside and watched the sunset with her cat. She utilized oppositve action as well with benefits. Her goal is to avoid sleeping and isolating throughout the day which she completed yesterday. She found herself sleeping as a way to cope and pass her day which overall impacted her mood. She also opened up her chemistry book which is progress as she has been avoiding this course. Progress noted per pt report. Benefited from group support, encouragement, and feedback. Will continue in IOP to maintain safety, stabilize mood, and improve healthy coping. Narrative Note: []
--- NOTE | 2020-07-22 10:15 | BH.SGPN.GN ---
Behaviors/Verbalizations/Mental Status: []Client alert and oriented, casually dressed and groomed. Eye contact good. Motor activity appropriate. Speech within normal limits. Affect constricted, mood depressed and anxious. Thoughts linear, logical, no signs of hallucinations or delusions. Client Response/Progress/Benefit: []Client was an engaged participant AEB client listening attentively to others. Client quiet, but she was nodding frequently and taking notes. The group worked together to identify barriers that keep one from choosing a new and healthier path to mental wellness. Attentive during psychoeducation on the chapters of life. Benefited from increased awareness and education on barriers to choosing new wellness paths and chapters of life. Client identified being in chapter 2/3 as client has gained some awareness of her mental health symptoms, but she struggles with proactively avoiding setbacks. Client also is learning how to cope in healthier ways. Will continue IOP tx to prevent decompensation, improve daily functioning, and reduce distorted thoughts. Narrative Note: []
--- NOTE | 2020-07-22 11:15 | BH.SGPN.GN ---
Behaviors/Verbalizations/Mental Status: []Client alert and oriented, casual dress, hygiene appropriate. Eye contact fair. Motor activity appropriate, at times. speech and tone WNL. Affect congruent. mood anxious. Thoughts linear, logical, no signs of hallucinations or delusions. Client Response/Progress/Benefit: []Client engaged in session AEB listening to discussion and provided input at times. Client attentive during psychoeducation about importance of maintenance plans. Client did well to work with the group to brainstorm strategies to promote making progress towards their desired chapter. Pt completed provided maintenance plan worksheet in small group. Pt identified personal triggers as: overthinking, school workload, toxic relationships, and social environments. Identified warning signs as: sleeping too much, isolation, self-degrading thoughts, and no motivation. Pt identified healthy coping skills as: communication, addressing issues one by one, and giving self credit for positives. Seemed to benefit from increasing awareness of triggers, warning signs and coping skills. Will continue IOP tx to increasing healthy coping, increase self-confidence, and prevent decompensation. Narrative Note: []
--- NOTE | 2020-07-27 09:02 | BH.SGPN.GN ---
Behaviors/Verbalizations/Mental Status: [] Pt eye contact good, casually dressed, motor activity appropriate, speech normal rate and tone, mood anxious, congruent affect, thoughts linear and intact, no evidence of delusions or hallucinations. Reviewed client?s symptom tracker pt indicated a 1/5, with 5 being severe, for suicidal ideation and a 0/5 for suicidal intention. This is below pt's baseline. Does not appear to be imminent risk to hurt self. Client Response/Progress/Benefit: []Patient responded well to session as evidenced by sharing thoughts and feelings and listened attentively to peers. Patient stated she has been working on her goal of being able to let go of past relationships and friendships. Patient reported she has not been thinking about her past relationships which has been beneficial. Patient identified stressor as being anxious about school coming up in September and avoiding most anxious things in general. Patient stated often anxious about the future with difficulty being in the present moment. Receptive to ideas and education about mindfulness and grounding tools. Identify mental positives as attending to graduation parties with minimal anxiety and continuing to journal daily. Patient seen the benefit from expressing thoughts and feelings. Patient to continue IOP to continue to healthy coping skills, challenge negative thought patterns, and prevent decompensation. Narrative Note: []
--- NOTE | 2020-07-27 10:08 | BH.SGPN.GN ---
Behaviors/Verbalizations/Mental Status: []Client alert and oriented, casual dress, hygiene tended to. Eye contact good. Motor activity appropriate. Speech within normal limits. Affect congruent, mood anxious. Thoughts linear, logical, no signs of hallucinations or delusions. Client Response/Progress/Benefit: [] Engaged participant AEB pt providing input when prompted throughout session and listening attentively to others. Engaged during psychoeducation portion reviewing fixed mindset, sharing that she could relate to examples shared by fellow participants. Pt worked with group to identify how a fixed mindset can impact mental health which included: keeping people stuck, reinforcing fear of failure, giving up, and negative self-talk. Able to identify personal examples of fixed thoughts which included ?I have to appear happy? and ?I should just get over it?. Client shared that she can connect with self-comparison and habit as reinforcing fixed thoughts. Seemed to benefit from group by increasing awareness of how one's mindset can impact mental health and ability to cope. Pt will continue IOP tx this week to continue to promote healthy coping skills and continue to improve mental health sx management. Narrative Note: []
--- NOTE | 2020-07-27 11:13 | BH.SGPN.GN ---
Behaviors/Verbalizations/Mental Status: []Client alert and oriented, casually dressed and groomed. Eye contact good. Motor activity appropriate. Speech within normal limits. Affect constricted. mood dysthymic. Thoughts linear, logical, no signs of hallucinations or delusions. Client Response/Progress/Benefit: []Client responded well to session, making connections during activity and able to reframe fixed thinking. Client took her fixed thought of ?this person said I should be happy so I should just get over it? and discussed how this thought impacts her mental health. Client was able to use reframing techniques to create a more growth mindset thought of ?I am trying to chelsey better and I don?t need to seek approval.? Client appeared to benefit from gaining awareness of her fixed thought patterns and practicing reframing techniques with peers. Client is increasing self-awareness of distorted thought patterns, but she continues to struggle with challenging these. Will continue IOP tx to prevent decompensation, reduce negative thought patterns, and improve daily functioning. Narrative Note: []
--- NOTE | 2020-07-27 14:13 | BH.MDN ---
Multi-Disciplinary Note - Note 60-min Individual Time Started:: 12:10 Date: 07/27/20 Purpose of session/treatment goals addressed:: To work on goal #2 of client's tx plan. Another goal was to provide tangible resources for coping skills. Eye Contact:: Good Motor Activity:: Restless Appearance:: Casual Speech:: Soft Mood:: Anxious Affect:: Congruent Thoughts:: Linear, Other - frequent use of distortions, No evidence of hallucinations/delusions noted Staff Interventions:: Therapist provided education on anxiety, avoidance behaviors, and maintenance cycles. Therapist helped client explore personal symptoms and warning signs of anxiety. Therapist taught client coping skills to improve emotional regulation, mindfulness, and distress tolerance to help client cope with anxiety in the moment. Therapist helped client gain awareness of distortions that reinforce anxiety and depression. Client Response:: Client responded well to session, open to meeting with therapist. Client shared she is not longer as nauseous as she had been, but it comes in waves. Client reports she has been waking up anxious and this is worse on days I don't have a routine. Client stated when she feels anxious she often avoids, isolates, or sleeps. Able to recognizes that this reinforces anxiety and triggers negative self-talk. Client describes herself as a perfectionist and feels like she should always be busy. This triggers negative self-talk as client's depression has made it hard for client to be productive. Discussed the cognitive triangle and unrealistic expectations of self. Practiced thought challenging and reviewed other coping skills. Client provided with a handout on the five categories of coping and in session practiced the 5-senses. Client willing to practice one calming or grounding skill a day to help manage anxiety. Risks/Concerns:: Client denies any active suicidal ideations, plan, or intent as of 07/27/20. Future oriented. Progress Toward Goals/Plan:: Client making mild progress towards [place] goals as client has had consistent attendance and appears to be responding well to the different group topics. However, client continues to endorse depressive symptoms daily, anxiety, avoidance, nausea, anhedonia, and passive SI. Client receptive to learning different types of coping skills and willing to practice one calming skill a day. Client will continue IOP tx to prevent decompensation, reduce passive SI, and improve overall functioning. Time Stopped:: 13:08
--- NOTE | 2020-07-28 09:05 | BH.SGPN.GN ---
Behaviors/Verbalizations/Mental Status: [] Eye contact is good. Motor activity is appropriate. Appearance is casual. Speech is Appropriate. Mood is depressed. Affect is flat. Thoughts are linear and logical. No evidence of psychosis. Reviewed daily check in sheet and pt reports 1/5 for suicidal thoughts and 0/5 for intent. Client Response/Progress/Benefit: [] Pt participated when prompted. Emotion for today is anxious. Shared with the group mental health wins which included trying guided meditation and self-care. She talked about the benefits of guided meditation and how it helped her mental wellness for a period of time. Progress noted per pt report. Stressors related to her physical health as she continues to struggle with mobility after her knee surgery and recently learned that she may have to have her wisdom teeth removed as well as other dental surgery. Benefited from group support, encouragement, and feedback. Will continue in IOP to increase healthy coping, improve functioning, and prevent decompensation. Narrative Note: []
--- NOTE | 2020-07-28 11:15 | BH.SGPN.GN ---
Behaviors/Verbalizations/Mental Status: []Client alert and oriented, casually dressed and groomed. Eye contact good. Motor activity appropriate. Speech within normal limits. Affect constricted. Mood dysthymic. Thoughts linear, logical, no signs of hallucinations or delusions. Client Response/Progress/Benefit: []Client engaged during activity and provided ideas on how to cope with internal barriers that keep clients stuck from moving towards goals. Client able to identify barriers to desired reality. Client reported she wants to work on overcoming barrier of disqualifying the positives. Client reported she will start to overcome this barrier by using opposite action to identify and give self credit for positive things she does. Benefited from group by identifying obstacles and solutions to desired reality. Will continue IOP tx to prevent decompensation, challenge negative thoughts and increase healthy coping skills.
--- NOTE | 2020-07-28 12:17 | PCM.BH.PN ---
Progress Note Progress Note: Progress Note: History of Present Illness/Interim History: [] Patient is a 20-year-old female who is seen in follow-up at the [facility] behavioral health IOP program. I last saw the patient 1 week ago and the patient requested to see me today. The patient says that she feels better now and is only having occasional mild nausea off and on in the morning which resolves in a short time. She denies any alcohol use since prior to last appointment. Her mood is much less depressed and she feels less tired during the day. She got the cast off of her left knee and has been able to be a little more active and she feels this is helping her also. She has been walking and riding an exercise bike lately. She continues doing the rehab for her left knee. She still has occasional fleeting, passive suicidal thoughts at times but denies any active suicidal ideation or any plan for suicide. She has minimal thoughts of self-harm now and has been able to resist them. She does admit now that she has cut herself off and on for 3 years and she last cut herself 1 month ago. She has no scars from the cutting. She plans to return to school in early September after the summer break ends. Current Psychiatric Medications: [] Zoloft 50 mg p.o. daily; vitamin D2 50,000 IU p.o. weekly Mental Status Examination: [] Patient is a 20-year-old female who appears normal for stated age and is seen wearing a mask due to the pandemic. She is casually dressed and groomed with good hygiene. Eye contact is good and speech is normal rate and rhythm and fluent with no pressure. Mood is mildly depressed. Affect is constricted. Thought process is goal-directed and organized. Thought content: There is evidence of fleeting passive suicidal ideation only at times. There is no evidence of urges to self-harm, active suicidal ideation, plan for suicide, homicidal ideation, hallucinations or delusions. Insight is limited but improving. Judgment is intact. Impulsivity is moderate. Diagnoses: [] 1. Major depressive disorder, recurrent, severe without psychosis 2. Social anxiety disorder 3. Generalized anxiety disorder 4. Primary support and school issues Plan: [] The patient will continue the IOP program at [facility] as the structure, support, education and group therapy will hopefully prevent worsening of the patient's symptoms. She felt safe during the interview and if it anytime she does not feel safe she agrees to let us know or go to the emergency room. The risks, options, possible complications and side effects of the medications were again discussed with the patient and she understands and accepts these. No medication changes were made today. The patient will continue to follow-up with her outpatient psychiatric and medical providers.
--- NOTE | 2020-07-29 09:00 | BH.SGPN.GN ---
Behaviors/Verbalizations/Mental Status: [] Eye contact is good. Motor activity is appropriate. Appearance is casual. Speech is Appropriate. Mood is anxious. Affect is congruent. Thoughts are linear and logical. No evidence of psychosis. Reviewed daily check in sheet and no reports of suicidal ideations or intent. Client Response/Progress/Benefit: [] Pt participated at times during the group discussion on the role of enchantment on mental health. Attentive. Emotion for today is anxious. She is unsure the trigger to anxiety. Shared with the group her extensive jounraling and mood tracking in the past several weeks. Reports that she has 6 separate journals which she writes in. The journals all have different purposes which she explained to the group. She is sleeping less and is more motivated with tasks. Went to the gym and walked with support yesterday. Feels that she is managing her anxiety and depression more effectively. Progress noted per pt report. Will continue in IOP to maintain gains, increase consistent use of skills, and improve functioning. Narrative Note: []
--- NOTE | 2020-07-29 10:15 | BH.SGPN.GN ---
Behaviors/Verbalizations/Mental Status: []Client alert and oriented, casual dress, hygiene tended to. Eye contact fair. Motor activity appropriate. Speech within normal limits. Affect constricted. Mood anxious. Thoughts linear, logical, no signs of hallucinations or delusions. Client Response/Progress/Benefit: []Pt mostly passive participant AEB providing limited input during group discussions however appeared to listened attentively to others. Pt listened to group identify benefits of emotional health which included: improved relationships, increased patience, improved regulation, and improved communication. Pt attentively listened to discussion about barriers of improving emotional wellness. Seemed to benefit from increased awareness of importance of improving emotional wellness. Pt to continue IOP to continue use of healthy coping, improve self-esteem and prevent decompensation. Narrative Note: []
--- NOTE | 2020-07-29 11:16 | BH.SGPN.GN ---
Behaviors/Verbalizations/Mental Status: []Client alert and oriented, neat and casually dressed and groomed. Eye contact good. Motor activity appropriate. Speech within normal limits. Affect constricted, mood anxious. Thoughts linear, logical, no signs of hallucinations or delusions. Client Response/Progress/Benefit: []Client responded well to session, attentive AEB contributing at times and taking notes throughout discussion. Client engaged in the discussion reviewing the ?10 [place] TIPS for Emotional Wellness?. Client worked within a smaller group to identify how each tip could aid in supporting personal emotional wellness and come up with ways to practice each of the tips reviewed. Client shared connecting with the emotional wellness trait of surround yourself with positive people and positive thoughts, sharing that she has struggled in setting boundaries with toxic people in the past. Client noted she would like to further work on the emotion wellness trait ?be a good friend to yourself? in order to improve her self-worth, reduce depression, and continue to make progress in her mental health tx. Expressed she can practice doing so by continuing to work on setting healthy boundaries. Client to continue IOP tx to prevent decompensation, improve sx management, and promote application of healthy coping skills. Narrative Note: []
--- NOTE | 2020-08-03 09:05 | BH.SGPN.GN ---
Behaviors/Verbalizations/Mental Status: [] Eye contact is good. Motor activity is appropriate. Appearance is casual. Speech is Appropriate. Mood is anxious. Affect is congruent. Thoughts are linear and logical. No evidence of psychosis. Reviewed daily check in sheet and no reports of suicidal ideations or intent. Client Response/Progress/Benefit: [] Pt participated when prompted. Attentive. States I often wake up in panic mode. Shared that yesterday she woke up extremely anxious about tasks and responsibilities. This led to isolation and then distracting herself with movies. Ultimately she stayed in bed all day. Group challenged her on the cycle of avoiding tasks daily rather than addressing tasks that are causing anxiety. Awareness that she is avoiding and distracting which is leading to more anxiety. Group also provided feedback on routines in the AM to elicit opposite action. Mental health wins included fishing with her family and doing other outside activities. Regression noted per pt report. Will continue in IOP to maintain safety, improve functioning, and develop healthy coping skills. Narrative Note: []
--- NOTE | 2020-08-03 11:13 | BH.SGPN.GN ---
Behaviors/Verbalizations/Mental Status: []Client alert and oriented, neatly dressed and groomed. Eye contact good. Motor activity appropriate. Speech within normal limits. Affect constricted, mood anxious. Thoughts linear, logical, no signs of hallucinations or delusions. Client Response/Progress/Benefit: []Client an active participant throughout AEB contributing to discussion and taking notes. Client participated in the group activity highlighting the various barriers to effectively utilizing supports and strategies the group used. Client participated in discussion of the four types of support (emotion, tangible, informational, and social/peer) and the group listed examples for all types. Client reports wanting to work on increasing peer and emotional support as client feels this will help client get out of her comfort zone and feel seen. Client plans to do this by practicing self-reflection of her emotions, making plans with friends this week, and joining a group. Client seemed to benefit from identifying the type of support client wants to improve. Will continue IOP tx to reduce avoidance behaviors, improve daily functioning, and increase use of healthy coping skills. Narrative Note: []
--- NOTE | 2020-08-03 11:13 | BH.SGPN.GN ---
Behaviors/Verbalizations/Mental Status: []Eye contact is good. Motor activity is appropriate. Appearance is casual. Speech is Appropriate. Mood is anxious. Affect is constricted. Thoughts are linear and logical. No evidence of psychosis. Client Response/Progress/Benefit: []Pt was an active participant AEB attentiveness, taking notes, and participation in activity. Listening throughout group discussion on benefits and examples of healthily social supports., though remained a mostly passive participant throughout. Group noted benefits of strong social supports as: provides encouragement, hold us accountable, different perspective, and tangible resources. Client again remained attentive throughout discussion on barriers to using support system. Nodding as group reflected on how toxic supports can impede progress. Able to see the impact of support and its benefits during activity and challenges of accomplishing tasks w/o proper support. Benefited from awareness of barriers to support as well as importance of support in mental health wellness. Will continue IOP tx to continue to improve anxiety management, continue to promote healthy change behaviors, and prevent decompensation. Narrative Note: []
--- NOTE | 2020-08-04 09:05 | BH.SGPN.GN ---
Behaviors/Verbalizations/Mental Status: []Client alert and oriented, neatly dressed and groomed. Eye contact good. Motor activity appropriate. Speech within normal limits. Affect constricted, mood anxious. Thoughts linear, logical, no signs of hallucinations or delusions. Reviewed client?s symptom tracker, client was 2/5 for thoughts of suicide and 0/5 for plan and intent. Future oriented. Client Response/Progress/Benefit: []Client responded well to session, attentive and engaged. Client reports feeling anxious this morning as client had to get a last minute dentist appointment and has been feeling rushed all morning. Client stated she also still feels nauseous and is unsure if this is from anxiety or her medication. Client called a friend and spent time with her cat last night and this morning to help manage anxiety. Client was also encouraged to use calming skills before the dentist and to challenge negative thought patterns. Appeared to benefit from encouragement from the group. Progress noted as client is gaining insight to her triggers and symptoms, but client continues to struggle with application of coping skills. Will continue IOP tx to prevent decompensation, improve emotional regulation skills, and combat distortions. Narrative Note: []
--- NOTE | 2020-08-04 10:16 | BH.SGPN.GN ---
Behaviors/Verbalizations/Mental Status: []Eye contact is good. Motor activity is appropriate. Appearance is appropriate, neat and casual. Speech is Appropriate, soft and limited input provided. Mood is depressed and anxious. Affect is constricted. Thoughts are linear and logical. No evidence of psychosis. Client Response/Progress/Benefit: [] Client was an somewhat active participant AEB attentiveness, taking notes, and contributing when prompted throughout; however, remained a mostly passive participant throughout. Client attentive during group discussion reviewing the importance of addressing and learning to cope with anxiety. Attentive during psychoeducation on different types of anxiety disorders. Engaged as group worked to describe anxiety as well as the impact of anxiety unmanaged anxiety on daily functioning. Client shared that she can relate to not setting boundaries or procrastinating due to anxiety. Worked with group to identify common physical symptoms of anxiety and noted personal anxiety symptoms to include: shakiness, racing thoughts, chest tightness, sweaty palms, insomnia, and feeling nauseous. Worked with group to identify safety behaviors which included: using social media to distract, sleeping, self-harming, or avoiding being at home. Benefited from increased insight and awareness from group discussions. Will continue in IOP to improve boundaries, prevent decompensation, and improve healthy skill application. Narrative Note: []
--- NOTE | 2020-08-04 11:16 | BH.SGPN.GN ---
Behaviors/Verbalizations/Mental Status: []Client alert and oriented, casually dressed and groomed. Eye contact fair. Motor activity appropriate. Speech within normal limits. Affect congruent, mood anxious. Thoughts linear, logical, no signs of hallucinations or delusions. Client Response/Progress/Benefit: []Client was an active participant in group discussion and providing good insight to peers. Reviewed safety behaviors she engages in that reinforce anxiety. Attentive during psychoeducation on mindfulness coping skills and their impact on mental health wellness. The group worked together to brainstorm anxiety reduction strategies. Client shared she is willing to practice the following coping skills for anxiety: grounding, meditation, and journaling. Client seemed to benefit from increased repertoire of anxiety reduction skills. Client will continue IOP tx to continue use of healthy coping skills, challenge distorted thoughts and prevent decompensation. Narrative Note: []
--- NOTE | 2020-08-04 12:31 | BH.COMM ---
Communication Note - Communication with Client Communication Note: Therapist checked in with client regarding client's daily symptom tracker scores. Client admits to having fleeting suicidal ideations last night and some this morning. Client denies any active suicidal ideations, plan, or intent. Reports ability to maintain safety today and feels able to go to ER should she feel like she cannot keep herself safe. Future oriented and family is her protective factor.
--- NOTE | 2020-08-05 10:15 | BH.SGPN.GN ---
Behaviors/Verbalizations/Mental Status: [] Eye contact is good. Motor activity is appropriate. Appearance is casual. Speech is Appropriate. Mood is depressed. Affect is flat. Thoughts are linear and logical. No evidence of psychosis. Client Response/Progress/Benefit: [] Pt was an active participant in group discussion and activity. Attentive during psychoeducation. Along with peers pt contributed to identifying common myths associated with self-care which included; has to be fun, is expensive, has to be by yourself, is selfish, take ups to much time, has to be related to self-hygiene. Group worked together to debunk these myths as well as identify benefits to self-care such as more relaxed, decreased stress, increased motivation, improved mood, and improved relationships. Barriers to completing self-care were identified to be laziness, lack of motivation, not enough time, other things are more important, procrastination, and feeling as if I don't deserve it. Able to relate group activity to topic. Benefited from group by increased awareness of the importance of self-care in mental health. Will continue in IOP to maintain safety, prevent decompensation, and improve functioning. Narrative Note: []
--- NOTE | 2020-08-05 11:05 | BH.MDN ---
Multi-Disciplinary Note - Note 60-min Individual Time Started:: 09:20 Date: 08/05/20 Purpose of session/treatment goals addressed:: To work on goal #1 of client's tx plan. Another goal was to increase emotional awareness. Eye Contact:: Good Motor Activity:: Appropriate Appearance:: Neat Speech:: Soft Mood:: Anxious, Dysthymic Affect:: Congruent Thoughts:: Linear, Logical, No evidence of hallucinations/delusions noted Staff Interventions:: Therapist used cognitive restructuring techniques and helped client gain awareness of negative thoughts that reinforce low self-worth and depression. Therapist provided psychoeducation on maintenance cycles and helped client learn ways to break unhealthy maintenance cycles. Therapist helped client incorporate behavioral activation and taught client A.C.E. Therapist gave client a mood chart to help increase emotional awareness. Client Response:: Client responded well to session, open to meeting with therapist. Client shared she has done all of the homework you gave me. Client practiced calming coping skills, contacted her professor and friend, and used opposite action yesterday. Client stated she took a nap which made client feel more depressed, but then client used opposite action and went to the gym which helped. Client reports one of her stressors is coping with her family dynamic. Client shared her mother and brother also struggle with depression which causes some conflict with client's father. Client recognizes that the way her father responds to client's mother's depression impacts the way client views her worth. Client stated she is currently struggle with having a bunch of stuff on my to do list, but also believing that life is meaningless. Client shared this keeps her stuck and further reinforces mental health symptoms. Discussed focusing on finding meaning in daily things rather than looking for bigger meanings. Client receptive to learning A.C.E and will work on this technique each day. Also discussed thought challenging techniques as client often labels herself a burden to others. Able to combat this distortion with assistance and willing to continue working on recognizing distortions. Client wants to increase awareness of her emotions as well and was receptive to using a mood chart to help identify more specific emotions. Risks/Concerns:: Client admits to having passive SI yesterday, but denies any SI today. Denies any plan or intent. Future oriented and more positive this morning than yesterday. Progress Toward Goals/Plan:: Client is demonstrating progress towards TX goals AEB client's self-report of practicing coping skills outside of IOP such as opposite action, reaching out to support, and grounding. Client reports apathy, worry about the future, restlessness, anxious, and negative thinking are her biggest symptoms. Client's appetite is still decreased due to nausea that comes and goes. Will continue IOP tx to promote the use of healthy coping skills, decrease distorted thought patterns, and improve mood stability. Time Stopped:: 10:14
--- NOTE | 2020-08-05 11:18 | BH.SGPN.GN ---
Behaviors/Verbalizations/Mental Status: []Client alert and oriented, casually dressed and groomed. Eye contact good. Motor activity appropriate. Speech within normal limits. Affect constricted, mood anxious and depressed. Thoughts linear, logical, no signs of hallucinations or delusions. Client Response/Progress/Benefit: []Client engaged participant AEB client taking notes during discussion, providing input when prompted, and listening attentively to peers. Continues to struggle with significant anxiety which impacts participation and client often remains passive throughout. Attentive in group discussion on the various areas of self-care, benefits, and types of self-care activities for each area. Client completed worksheet in which client identified current self-care practices and what self-care activities client wants to start using. Client reported she is currently excelling in areas of psychological and physical self-care. Expressed wanting work financial self-care, specifically better organization of finances. Client shared she wants to begin tracking where she is spending money the most to see if she is able to cut back on anything. Appeared to benefit from reflecting on the area of self-care client can improve and setting a small goal. Will continue IOP tx to increase mood stability, combat distortions, and further promote healthy coping skills to prevent decompensation. Narrative Note: []
--- NOTE | 2020-08-10 09:01 | BH.SGPN.GN ---
Behaviors/Verbalizations/Mental Status: [] Client alert and oriented, casually dressed and groomed. Eye contact good. Motor activity appropriate. Speech within normal limits. Affect congruent, mood anxious, euthymic. Thoughts linear, logical, no signs of hallucinations or delusions. Reviewed client?s symptom tracker, suicidal ideation reported as a 2/5 which is consistent with baseline, denies any plan or intent as of 08/10/20. Client Response/Progress/Benefit: [] Client responded well to session, attentive and contributing to discussion. Client reports feeling content this morning. Did well to identify several positives which included taking fewer naps than usual, going for walks over the weekend, as well as continuing to make progress in her physical therapy. Client discussed initially struggling on Sunday but did well to find ways to begin eliciting different emotions and not ?stay stuck? in her negative mindset. Client shared current stressor is anxiety about returning to school and noted avoiding making a plan to begin addressing these anxieties. Identified small goals she can work on to continue to address stressors with in her control. Appeared to benefit from connecting with peers and reflecting on wins. Will continue IOP tx to promote gains, further improve mood stability, and reinforce healthy coping skills. Narrative Note: []
--- NOTE | 2020-08-10 10:05 | BH.SGPN.GN ---
Behaviors/Verbalizations/Mental Status: []Client alert and oriented, neatly dressed and groomed. Eye contact good. Motor activity appropriate. Speech within normal limits. Affect constricted, mood euthymic. Thoughts linear, logical, no signs of hallucinations or delusions. Client Response/Progress/Benefit: []Pt was an active participant in group discussion. Attentive during psychoeducation. Along with peers pt was able to provide insight on the importance of goal-setting. Group identified that goals are important because they motivate, increase self-esteem, and are needed to have progress. Group also worked together to identify barriers to goal-setting which included; negative self-talk, not having supportive people, minimizing progress, and toxic people. Pt shared it is hard for her to acknowledge progress at times because ?I should be able to do these things.? Benefited from increased awareness of benefits and barriers to goal-setting. Pt will continue in IOP to promote mood stability and increase ability to challenge distortions. Narrative Note: []
--- NOTE | 2020-08-10 11:10 | BH.SGPN.GN ---
Behaviors/Verbalizations/Mental Status: []Eye contact is good. Motor activity is appropriate. Appearance is casual. Speech is Appropriate. Mood is euthymic. Affect is congruent. Thoughts are linear and logical. No evidence of psychosis. Client Response/Progress/Benefit: []Pt was an active participant in group discussions and activities. Along with group members was able to identify barriers during group beach ball activity and strategies they utilized to overcome these barriers (communicating, encouraging others). Able to identify a SMART goal for the next week which was review for chemistry class by watching at least 30 minutes of lecture video everyday for a week. Pt stated this will benefit her by decreasing anxiety and stress. Pt was able to identify barriers and obstacles to these goals and strategies to overcome these barriers. Benefited from group by being able to utilize SMART educate to create a goal. Narrative Note: []
--- NOTE | 2020-08-11 08:22 | BH.TPR ---
Treatment Plan Review Date of Admission:: 07/13/20 Date of Treatment Plan Review:: 08/10/20 Admitting Diagnoses:: Major depressive disorder, recurrent, severe without psychosis F33.2; social anxiety disorder; generalized anxiety disorder Current Diagnoses:: Major depressive disorder, recurrent, severe without psychosis F33.2; social anxiety disorder; generalized anxiety disorder Patient's Response to Treatment:: Client's engagement has increased this week as client is contributing to discussions, connecting with peers, and giving personal examples. This is an improvement as client was very passive for the first three weeks of treatment. Client is consistent and responds well to gentle thought challenging and homework. Status of Current Problems and Symptoms: Client has been reporting fewer depressive and anxiety symptoms such as reduced fatigue and less isolation. However, per client?s DSM-5 scores, client?s symptoms have not decreased since admission. Client has been using more healthy coping skills which is positive. Continues to report fleeting SI that is passive and occasional thoughts of being a burden. Client also reports ongoing nausea, especially in the mornings, which appears to be a symptom of anxiety as it worsens when client is worrying. Client continues to endorse negative self-talk, social anxiety, and some avoidance behaviors. Client's biggest stressor right now is worrying about returning to school and doing well in her Chemistry class. Client also does not know what she wants to do for a career and has limited supports. Problem #1 Problem Name:: Depression, negative self-talk, SI Status of Goals:: Objective 1- partially complete. Client has learned numerous healthy coping skills and she has been reporting the use of opposite action, exercise, journaling, and thought challenging. However, client?s DSM-5 scores for depression remain the same since admission. Client?s DSM-5 scores for thoughts of actually hurting herself increased since admission as well. It is possible that client was minimizing her thoughts of SI and self-harm at admission. Objective 2- in progress. Client has been working on identifying and replacing distorted thought patterns. Client has gained awareness of the distortions she uses and is currently working on combating negative self-talk. Team Recommendations:: Tx team recommends that client explore hobbies outside of exercising. Client also encouraged to continuing working on challenging negative thought patterns. Problem #2 Problem Name:: Anxiety and difficulty in social situations Status of Goals:: Objective 1- partially complete. Client can identify anxiety triggers and she has learned various calming coping skills. Client is working on increasing self-awareness of her emotions which will help client more proactively cope. Client?s DSM-5 scores for anxiety slightly increased since admission. This could be due to client being more social and practicing more opposite action rather than avoiding. Objective 2- completed with ongoing work encouraged. Client can identify distorted thought patterns that lead to rumination and she has learned how to challenge these. However, client struggles to do this on a consistent basis. Team Recommendations:: Tx team encouarges client to continuing working on reducing avoidance behaviors through use of opposite action. Also encouraged to participate in group as this helps client sit with the uncomfortable anxious feelings and cope in the moment.
== END 2020-08-11 23:59 ==
LOC: BHIOP 09:00
PROVIDERS: PCP Pediatrics; Referring Provider Psychiatry & Neurology Psychiatry; Visit Provider Psychiatry & Neurology Psychiatry
DX: F33.2 Major depressive disorder, recurrent severe without psychotic features (principal); F41.1 Generalized anxiety disorder
CPT/HCPCS: S9480; 90837; 90853

== ENCOUNTER → 2020-07-14 13:58 | Outpatient (CLI) | payer BC, SELFPAY ==
[2020-07-08 12:59] VITALS: BMI 23.5
[2020-07-14 15:35] LABS: Vitamin D,25 Hydroxy 19.6 ng/mL
[2020-07-14 15:39] LABS: Thyroid Stim Hormone (TSH) 1.39 uIU/mL (0.358-3.74)
--- NOTE | 2020-07-21 12:43 | PCM.BH.PN_ITS ---
Progress Note Progress Note: The patient is a 20-year-old female who is seen in follow-up at the [facility] behavioral health IOP program. The patient was last seen 1 week ago. She states that she started her Zoloft about 1 week ago. It was difficult to get a history from the patient and as the interview went on she apologized for being a poor historian and informed me that she complained of nausea and and dizziness in the past several days. She had stated that or given the impression that was due to the Zoloft which she started 1 week ago. [place] through the interview the patient said that she actually drank alcohol about 4 drinks several days ago and the nausea and dizziness started the day after she used alcohol. She has not changed in status or mood much in the past week. She remains somewhat depressed and has a low energy level and is tired during the day. She has no history of self-harm. She has some passive suicidal ideation but denies any active suicidal thoughts or plan for suicide. Objective: Patient appears normal for stated age and is casually dressed and groomed with good hygiene and is seen wearing a mask due to the pandemic. Eye contact is good and speech is normal rate and rhythm and fluent with no pressure. Mood is depressed. Affect is constricted. Thought process is goal-directed and organized. Thought content: There is evidence of some passive thoughts of and passive suicidal ideation. There is no evidence of urges to self-harm or active suicidal ideation. There is no evidence of hallucinations, delusions or homicidal ideation. Impulsivity is moderate. Insight: Improving. Judgment: Intact. Diagnosis: #1 (major depressive disorder, recurrent, severe without psychosis; #2 social anxiety disorder; #3 generalized anxiety disorder. Primary support and school issues. Plan: The patient will continue the IOP program at [facility] as the structure, support, education and group therapy will hopefully prevent worsening of the patient's symptoms which might require hospitalization. She felt safe during the interview and if it anytime she does not feel safe she agrees to let us know or go to the emergency room. The risks, options, possible complications and side effects of medications were discussed with the patient and she understands and accepts these. The patient wishes to continue the Zoloft at 50 mg daily as she does not feel that it was involved in the nausea and dizziness. She was given the option of stopping it and starting Wellbutrin but she refused. She will continue to follow-up with her outpatient psychiatric providers and I will see the patient in follow-up in 1 to 2 weeks.
== END ==
PROVIDERS: PCP Pediatrics; Referring Provider Psychiatry & Neurology Psychiatry; Visit Provider Psychiatry & Neurology Psychiatry
DX: E55.9 Vitamin D deficiency, unspecified (principal)
CPT/HCPCS: 36415; 82306; 84443

== ENCOUNTER 2020-08-12 08:23 | Outpatient (RCR) | payer BC, SELFPAY ==
[2020-07-23 14:17] VITALS: BMI 23.5
[2020-08-12 00:31] VITALS: BP 135/74; PULSE 92
--- NOTE | 2020-08-12 09:05 | BH.SGPN.GN ---
Behaviors/Verbalizations/Mental Status: [] Eye contact is good. Motor activity is appropriate. Appearance is casual. Speech is Appropriate. Mood is depressed. Affect is flat. Thoughts are linear and logical. No evidence of psychosis. Reviewed daily check in sheet and pt reports 1/5 for suicidal thoughts and 0/5 for intent. Client Response/Progress/Benefit: [] Pt participated when prompted. Attentive. Daily symptom tracker notes 3/5 for anxiety. Emotion for today is anxious. Check in was superficial however a significant mental health win was working on task that she has been avoiding. She continue to report anxiety in the morning when she wakes up. Remaining active and avoiding sleeping to escpate and past time. Progress noted per pt report. Benefited from group feedback and support. Will continue in IOP to maintain safety, increase healthy coping, and stabilize mood. Narrative Note: []
--- NOTE | 2020-08-12 10:05 | BH.SGPN.GN ---
Behaviors/Verbalizations/Mental Status: []Client alert and oriented, neatly dressed and groomed. Eye contact good. Motor activity restless. Speech within normal limits. Affect constricted, mood euthymic and anxious. Thoughts linear, logical, no signs of hallucinations or delusions. Client Response/Progress/Benefit: []Client engaged in session AEB taking notes and listening attentively to peers. Client shared connecting with the importance of setting boundaries, noting that ?there will always be people that disagree with your boundaries.? Client assisted group with identifying benefits of setting boundaries such as reduced stress and improved relationships. Listened during psychoeducation on different types of boundaries. Client seemed to benefit from increased awareness of how boundaries impact mental health and the different types of boundaries there are. Progress noted in client?s report of increased use of healthy coping skills. Will continue IOP tx to combat distorted thought patterns, reduce anxiety, and increase confidence. Narrative Note: []
--- NOTE | 2020-08-12 13:48 | BH.MDN ---
Multi-Disciplinary Note - Note 60-min Individual Time Started:: 11:12 Date: 08/12/20 Purpose of session/treatment goals addressed:: To assess areas of progress and identify areas client can continue to improve upon. Another goal was to practice cognitive restructuring. Eye Contact:: Good Motor Activity:: Appropriate Appearance:: Neat Speech:: Appropriate Mood:: Euthymic, Anxious Affect:: Congruent Thoughts:: Linear, Logical, No evidence of hallucinations/delusions noted Staff Interventions:: Therapist provided emotional support and encouragement on progress. Therapist used cognitive restructuring techniques to combat distorted thought patterns. Therapist explored client's thoughts of progress and areas client needs growth. Therapist helped client come up with a list of statements to help client combat distortions. Client Response:: Client responded well to session, open to meeting with therapist. Client shared overall she has made progress as client is more social, is journaling, and is using thought challenging more often. However, client continues to feel highly anxious and wants to work on reducing this over the next few weeks. Client states she has a lot of anxious thoughts about the future and what's to come. Client also has existential thoughts which leads to client thinking what's the point. Able to connect how these thoughts reinforce apathy, helplessness, and anxiety. Willing to challenge these thoughts and client wrote down statements to help challenge these thoughts. Client wrote down that although she may not know her purpose that does not mean she does not have one. Client also challenged negative thoughts that make client feel like a burden. Client encouraged to read through the more realistic and positive statements throughout the day. Risks/Concerns:: Client denies any active suicidal ideations, plan, or intent as of 08/12/20. Future oriented and reports overall mood improvement. Progress Toward Goals/Plan:: Client's DSM-5 scores have slightly increased since admission, however, per client's self-report she is doing better in some areas. Self-reports progress in using thought challenging, being more social and active, and increasing self-awareness. Client continues to struggle with anxiety, especially about the future, and existential thinking that reinforces depression. Will continue IOP tx to promote use of healthy coping skills, reduce distorted thought patterns, and improve mood stability. Time Stopped:: 12:08
--- NOTE | 2020-08-13 09:05 | BH.SGPN.GN ---
Behaviors/Verbalizations/Mental Status: [] Eye contact is good. Motor activity is appropriate. Appearance is casual. Speech is Appropriate. Mood is depressed. Affect is flat. Thoughts are linear and logical. No evidence of psychosis. Reviewed daily check in sheet and pt reports 1/5 for suicidal thoughts and 0/5 for intent. Client Response/Progress/Benefit: [] Pt participated at times during the group discussion on the role of blame in mental health. Attentive. Emotion for today is tired. Daily symptom tracker notes 2/5 for anxiety and 1/5 for self-harm urges. Mental health win was reaching out to support. Anniversary of a trigger event for her this weekend. Shared the event with peers. This anniversary has led to some distressing dreams. Limited progress per pt report. Benefited from group support, encouragement, and feedback from peers. Will continue in IOP to prevent decompensation, improve functioning, and increase healthy skills. Narrative Note: []
--- NOTE | 2020-08-13 10:10 | BH.SGPN.GN ---
Behaviors/Verbalizations/Mental Status: []Client alert and oriented, casual dress, hygiene tended to. Eye contact fiar. Motor activity appropriate. Speech within normal limits. Affect constricted, mood dysthymic. Thoughts linear, logical, no signs of hallucinations or delusions. Client Response/Progress/Benefit: []Pt mostly passive participant AEB pt providing input during discussion and listened attentively to peers. Pt worked with group to identify benefits of effective problem solving. Listened during psychoeducation about ABCDE problem solving method. Worked with group to identify barriers to effective problem solving which included: anxious thoughts, impatience, denial, not having skills, feeling overwhelmed, and worries about what other people think. Pt seemed to benefit from increased awareness of strategies to help solve a problem. Pt to continue IOP to continue use of healthy coping and prevent decompensation. Narrative Note: []
--- NOTE | 2020-08-13 11:10 | BH.SGPN.GN ---
Behaviors/Verbalizations/Mental Status: [] Eye contact is good. Motor activity is appropriate. Appearance is neat and casual. Speech is Appropriate. Mood is euthymic and anxious. Affect is congruent. Thoughts are linear and logical. No evidence of psychosis. Client Response/Progress/Benefit: [] Pt receptive to session as evidenced by remaining attentive, taking notes throughout discussion, and completing the problem-solving worksheet. Pt stated the problem she wants to work on is ?minimizing my emotions and avoiding reaching out because I feel like a bother and should just ?get over it??. Pt identified skills she can utilize to work on this problem include: ask if I?m a bother, avoid toxic relationships, ask for support, use positive affirmations, and focus on myself rather than comparing. Discussed that working to solve this problem will aid in improving confidence, see that people do care, and reduce anxiety. Pt seemed to benefit from identifying strategies to problem solve through a problem currently impacting mental health. Recommended continued tx to further improve use of healthy coping skills, maintain mood stability, and prevent decompensation. Narrative Note: []
--- NOTE | 2020-08-17 09:05 | BH.SGPN.GN ---
Behaviors/Verbalizations/Mental Status: []Pt eye contact fair, casually dressed, motor activity appropriate, speech normal rate and tone, mood anxious, constricted affect, thoughts linear and intact, no evidence of delusions or hallucinations. Reviewed client?s symptom tracker pt indicated a 2/5, with 5 being severe, for suicidal ideation and a 1/5 for suicidal intention. Pt reports improved mood today. Does not appear to be imminent risk to hurt self. Client Response/Progress/Benefit: []Pt engaged participant AEB listening attentively to others and sharing thoughts and feelings. Pt stated she had s bad anxiety attack on Sunday. Pt stated the panic attack had no apparent trigger but put her into emotional exhaustion all of Sunday and part of Sunday. Pt reported a mental health win as using opposite action on Sunday by making herself spend at least one hour with her family. Pt stated additional mental health positive as taking a walk yesterday. Pt reported feeling mentally better today, but still a little tired. Pt seemed to benefit from expressing thoughts and feelings. Pt to continue IOP to continue use of healthy coping, challenge distorted thoughts and prevent decompensation. Narrative Note: []
--- NOTE | 2020-08-17 10:15 | BH.SGPN.GN ---
Behaviors/Verbalizations/Mental Status: [] Client Response/Progress/Benefit: [] Pt participated at times during the group discussion and activity. Attentive during psychoeducation. Limited engagment however did at times provide feedback during activity where group had to identify 10 positives and 10 negatives of a picture. Attentive with some engagement while group identified what lead to one's perspective; upbringing, trauma, environment, friends, past events, fear, medical issues, physical pain, and mental health disorders. Some engagement and participation with peers as they identified how one's perspective can negatively impact mental health treatment leading to; risky behaviors, suicidal thoughts, self-harming, isolation, avoiding treatment, shutting down, and can also cause one to stop taking medications. Provided some input into how a positive or realistic perspective can help decrease depression, improve relationship, increase hope, and increase motivation. Increased awareness and discussion on the role that perspective has on mental health was beneficial. Will continue in IOP to prevent decompensation and increase healthy coping. Narrative Note: []
--- NOTE | 2020-08-17 11:15 | BH.SGPN.GN ---
Behaviors/Verbalizations/Mental Status: []Client alert and oriented, neatly dressed and groomed. Eye contact fair. Motor activity slightly restless. Speech within normal limits. Affect constricted, mood dysthymic. Thoughts linear, logical, no signs of hallucinations or delusions. Client Response/Progress/Benefit: []Pt engaged participant AEB pt providing input throughout session, listening attentively to peers and completing strengths exploration handout. Pt identified personal strengths such as love, kindness, and empathy. Pt stated these strengths will help pt?s mental health recovery because they help pt see a sense of purpose, look forward to life, and challenge distortions. Pt seemed to benefit from increased awareness of personal strengths and improved understanding how perspective can impact view of self. Pt also attentive while group identified coping skills to increase recognition of strengths. Pt reports knowing her strengths helps pt help others better too. Pt is to continue IOP tx to further reduce depressive symptoms, improve daily functioning, and combat distortions. Narrative Note: []
--- NOTE | 2020-08-19 09:05 | BH.SGPN.GN ---
Behaviors/Verbalizations/Mental Status: [] Eye contact is good. Motor activity is appropriate. Appearance is neat. Speech is Appropriate. Mood is depressed/irritable. Affect is flat. Thoughts are linear and logical. No evidence of psychosis. Reviewed daily check in sheet and pt reports 3/5 for suicidal thoughts and 2/5 for risk. Therapist notified Client Response/Progress/Benefit: [] Pt participated when prompted. Attentive. Did not provide feedback to peers. Pt talked at length regarding a stressor which occurred yesterday. She was scrolling through her mother's phone looking at pictures that mother had just taken when she noticed a picture of her journal. This was upsetting for patient and she felt violated which resulted in her isolating and crying for the rest of the night. According to pt her parents refused to apologize and instead stated that they did this out of concern for her. Pt couldn't focus and was catastrophizing thinking that she would never be able to trust her parents again. Group provided empathy and validated feelings. Pt is able to see that parents were concerned for her and genuinely wanted to help however feels that they crossed a boundary. Admits to group that she had minimized the extent of her panic this past weekend to group this week as this panic is what led to parents getting concerned and looking though her journal. She did not elaborate on what the journal entry was about. She did however state that her parents told her to stop all her psych medications several weeks ago which she did not disclose to IOP staff. Mental health wins included getting a new car yesterday and being excited about returning to school and living in her apartment with friends. Regression noted as pt has been minimizing symptoms to IOP staff and apparently has been non-compliant with medications for several weeks. Benefited from group support, encouragement, and feedback from peers. Will continue in IOP to prevent decompensation, maintain safety, and increase healthy coping. Narrative Note: []
--- NOTE | 2020-08-19 10:10 | BH.SGPN.GN ---
Behaviors/Verbalizations/Mental Status: [] Client alert and oriented, casually dressed and groomed. Eye contact good. Motor activity appropriate. Speech within normal limits. Affect congruent, mood dysthymic and anxious. Thoughts linear, logical, no signs of hallucinations or delusions. Client Response/Progress/Benefit: [] Pt was an attentive participant in group discussion AEB actively listening, taking notes, as well as completed group worksheet. Remaining mostly passive throughout. Attentive as group discussed how learning to manage anger can positively improve mental health sx management and relationships. Group worked together to define anger and discussed the ways anger can impact one internally and externally. Pt reported that anger can be triggered by external situations and well as internal things such as anxiety or not meeting own expectations of self. Pt completed the iceberg exercise and identified emotions that tend to ?live under the surface? of anger. Pt also gained awareness of her typical responses to anger which included: shutting down, isolating self, difficulty communicating, negative self-talk, and negative comments to others. Benefited from group by increasing understanding of the impact of anger on mental health. Recommended continued tx to improve mood and anxiety management skills, prevent decompensation, and continue to work on improving consistent skill application. Narrative Note: []
--- NOTE | 2020-08-19 11:10 | BH.SGPN.GN ---
Behaviors/Verbalizations/Mental Status: []Client alert and oriented, neatly dressed and groomed. Eye contact fair. Motor activity appropriate. Speech within normal limits. Affect constricted, mood dysthymic and anxious. Thoughts linear, logical, no signs of hallucinations or delusions. Client Response/Progress/Benefit: []Pt was engaged throughout AEB participating in discussion and taking notes. Contributed as group brainstormed healthy coping skills for better managing anger which included: deep breathing, counting, exercise, self-reflection questions, and opposite action. Pt also gained awareness of physical warning signs pt has when feeling anger such as heading throbbing, restlessness, and clenched fists. Pt appeared to benefit from identifying different techniques to manage anger as well as gaining awareness of warning signs. Pt selected deep breathing techniques to better manage anger. Will continue IOP tx as pt reports decompensation in depressive symptoms. Will continue to monitor mood and SI. Narrative Note: []
--- NOTE | 2020-08-19 14:19 | BH.MDN ---
Multi-Disciplinary Note - Note 60-min Individual Time Started:: 12:05 Date: 08/19/20 Purpose of session/treatment goals addressed:: To address recent triggers and stressors that led to recent setback. To review healthy coping skills to manage depression and suicidal ideations. Eye Contact:: Good Motor Activity:: Restless Appearance:: Neat Speech:: Other - circumstantial Mood:: Anxious, Dysthymic Affect:: Constricted Thoughts:: Circular, No evidence of hallucinations/delusions noted Staff Interventions:: Therapist used active listening and provided emotional support as client shared recent stressors and triggers. Therapist used gentle thought challenging to help client gain awareness of distorted thought patterns reinforcing depression. Therapist assessed risk and helped client identify a coping plan for today. Reviewed alternatives to self-harm. Therapist encouraged client to go to the ER if she no longer feels like she can keep herself safe. Client Response:: Client responded well to session, open to meeting with therapist. Client shared she has had some recent challenges. Client stated she was doing fine but then became quickly overwhelmed while making a list for college which triggered suicidal ideations. Client then had a panic attack which concerned client's family. Client shared they kept asking me questions and I didn't know what to say. Eventually client's family found out client was having suicidal thoughts and this caused client's mother to look through client's IOP binder. Client stated she later found out that her mother looked through her journal. Client feels hurt due to trust being broken. Client stated this situation makes client want to push supports away, but client acknowledges this will not help long-term. Client also stated she wanted to self-harm, but client stopped herself. Client shared some of her distorted thought patterns and was able to challenge these. Client recognizes that she is not a bother because her friends continue to support her. Agreeable to bring her mother in for a session next week. Also agreeable to get a smoothie, go to the gym, and talk with her best friend later today. Client stated although she thinks about suicide, she would not do it. Client reports looking forward to going back to school because this has been the worst summer of my life so I'm ready to go back. Client smiling by the end of session and joking with therapist. Risks/Concerns:: Client reports having fleeting suicidal ideations that are passive. Client has been having thoughts of methods, but denies that she has any plan. Client denies any intent to act on these thoughts. Future oriented and reports looking forward to going to college in the fall and talking with a close friend kiarra. Reports ability to maintain safety today. Progress Toward Goals/Plan:: Client had been showing progress with using healthy coping skills and challenging distorted thought patterns. However, client reports increased anxiety and depression this week. Client states her suicidal ideations have slightly increased and she is feeling more anxious than she has ever been. Client reports her parents told client to stop taking her Zoloft. Client was able to make it to IOP today and was engaged during sessions which is positive. Will continue IOP tx to prevent decompensation, maintain safety, and improve daily functioning. Time Stopped:: 13:05
--- NOTE | 2020-08-20 09:00 | BH.SGPN.GN ---
Behaviors/Verbalizations/Mental Status: []Client alert and oriented, neatly dressed and groomed. Eye contact good. Motor activity appropriate. Speech within normal limits. Affect congruent, mood euthymic and anxious. Thoughts linear, logical, no signs of hallucinations or delusions. Reviewed client?s symptom tracker, no risk for suicidal ideation, plan, or intent as of 08/20/20 Client Response/Progress/Benefit: []Client responded well to session, attentive and engaged. Client reports feeling a little anxious this morning but client is also looking forward to seeing her friends this weekend. Client stated she feels anxious because she has a lot to accomplish before she leaves [facility] to visit her apartment at college. Discussed strategies to reduce stress today such as going to the gym and talking to a friend while she packs. Client struggles at times with minimizing her wins, but able to identify that she has been using more opposite action. Appeared to benefit from connecting with peers and challenging minimization. Will continue IOP tx to promote use of healthy coping skills, reducing negative thinking, and improve daily functioning. Narrative Note: []
--- NOTE | 2020-08-20 10:12 | BH.SGPN.GN ---
Behaviors/Verbalizations/Mental Status: []Client alert and oriented, neat and casually dressed and groomed. Eye contact good. Motor activity appropriate. Speech within normal limits. Affect congruent, mood anxious and dysthymic. Thoughts linear, logical, no signs of hallucinations or delusions. Client Response/Progress/Benefit: [] Pt was an engaged participant in group discussion, providing input and was attentive during psychoeducation. Participated in short activity about automatic thoughts, indicated relating to how automatic thoughts can harm self-esteem and communication with others. Group was primarily educational, therapist introduced and gave examples of the 10 cognitive distortions. Benefited from education and increased awareness of cognitive distortions and role that they play in negative thoughts and emotions. Pt reported connecting with the following distortions: catastrophizing and minimizing, mental filter, should and musts, and disqualifying the positives. Shared that distortions have reinforced perfectionistic thoughts and unrealistic expectations of herself. Will continue IOP tx to prevent decompensation, increase healthy coping skills, and improve daily functioning impacted by depression and anxiety. Narrative Note: []
--- NOTE | 2020-08-20 11:15 | BH.SGPN.GN ---
Behaviors/Verbalizations/Mental Status: []Client alert and oriented, neatly dressed and groomed. Eye contact good. Motor activity appropriate. Speech within normal limits. Affect constricted, mood euthymic and anxious. Thoughts linear, logical, no signs of hallucinations or delusions. Client Response/Progress/Benefit: []Client was an active participant AEB client participating in distortion jeopardy. Attentive and contributing during psychoeducation and additional discussion on cognitive distortions. Client engaged while group practiced identifying and reframing distorted thought patterns. Client shared struggling with distortion of ?shoulds and musts? and identified practicing thought stopping and acknowledging the positives to help combat this distortion. Client seemed to benefit from reframing distorted thoughts and brainstorming several skills for challenging distortions. Will continue IOP tx to improve emotional regulation skills, reduce distorted thought patterns, and improve daily functioning. Narrative Note: []
--- NOTE | 2020-08-24 09:08 | BH.SGPN.GN ---
Behaviors/Verbalizations/Mental Status: []Eye contact is good. Motor activity is appropriate. Appearance is casual. Speech is Appropriate. Mood is anxious and agitated. Affect is congruent. Thoughts are linear and logical. No evidence of psychosis. Reviewed daily check in sheet and reports suicidal ideations as a 2/5 which is consistent to baseline denies any plan or intent. Client Response/Progress/Benefit: []Pt was an active participant in group AEB providing some input and supportive feedback throughout. Client did well to process with the group and reports her emotion for the day as ?annoyed?. Went on to describe current stressor as her roommate?s parents continuing to prior into client?s personal life. Client discussed that they ask questions about her dating life which makes her feel uncomfortable and as though she is being pressured to date. Shared trying to set a boundary but struggling with knowing what exactly to say. Receptive of supportive feedback provided by group. Able to identify current positives which included moving her things into a new apartment and reaching out to her mom for support with her current stressor. Continues to struggle with consistent progress as client does not consistently apply coping skills learned and continues to struggle with avoidance. Benefited from group support, encouragement, and feedback. Will continue in IOP to improve coping repertoire and improve overall mood stability. Narrative Note: []
--- NOTE | 2020-08-24 10:15 | BH.SGPN.GN ---
Behaviors/Verbalizations/Mental Status: []Client alert and oriented, casually dressed and groomed. Eye contact fair. Motor activity appropriate. Speech within normal limits. Affect constricted, mood anxious. Thoughts linear, logical, no signs of hallucinations or delusions. Client Response/Progress/Benefit: []Client passive participant AEB pt providing limited input during session AEB client contributing thoughts throughout discussion and completing worksheet. Connected with discussion on crisis and how coping with external crises by using unhealthy coping skills could result in a personal crisis. Group reflected on the importance of having awareness of personal warning signs in order to prevent reaching crisis point. Group identified potential warning signs for crisis and client completed the personal warning signs worksheet. Client completed worksheet in which she identified personal crisis warning signs, however elected to not share out with group. Client benefited by increasing awareness of what leads to crisis and personal warning signs. Pt will continue IOP to improve self-esteem, challenge negative thought patterns and prevent decompensation. Narrative Note: []
--- NOTE | 2020-08-24 11:15 | BH.SGPN.GN ---
Behaviors/Verbalizations/Mental Status: []Client alert and oriented, casually dressed and groomed. Eye contact fair. Motor activity appropriate. Speech within normal limits. Affect constricted. Mood euthymic. Thoughts linear, logical, no signs of hallucinations or delusions. Client Response/Progress/Benefit: []Client responded well to session as evidenced by client listening attentively to others and providing strategies during discussion. Client identified warning signs for crisis and gained further awareness of earliest warning signs. Client created a crisis action plan to help client better manage warning signs for crisis. Client?s action plan for isolating, racing thoughts, and negative thinking included coping skills such as: meditation nakia, thought challenging, reading saved text messages, positive quote journaling, and reaching out to supports. Client appeared to benefit from creating a crisis action plan and increasing self-awareness. Client to continue IOP tx to continue use of healthy coping, challenge distorted thoughts, and increase self-confidence. Narrative Note: []
--- NOTE | 2020-08-25 09:00 | BH.SGPN.GN ---
Behaviors/Verbalizations/Mental Status: []Eye contact is good. Motor activity is appropriate. Appearance is neat. Speech is Appropriate. Mood is calm. Affect is constricted. Thoughts are linear and logical. No evidence of psychosis. Reviewed daily check in sheet and pt reports 3/5 for suicidal thoughts and 0/5 for intent. Future oriented and positive check-in. Client Response/Progress/Benefit: []Client responded well to session, attentive and receptive to feedback. Client reports feeling content this morning. Client shared she recently got a new car, so she spent some time driving around and decorating the inside. Client has also been practicing mindfulness while spending time with her cat and client has been consistently getting out of her house. Client's biggest stressor is getting ready to move back to college. Client is anxious about this, but also excited. Progress noted in client's increase application of coping skills, but she continues to struggle with using all or nothing thinking. Will continue IOP tx to reduce distortions that reinforce depression and further improve daily functioning. Narrative Note: []
--- NOTE | 2020-08-25 12:21 | PCM.BH.PN ---
Progress Note Progress Note: History of Present Illness/Interim History: [] Patient is a 20-year-old female who is seen in follow-up at the [facility] behavioral health IOP program. I last saw the patient about 1 month ago and the patient at that time was placed on Zoloft 50 mg p.o. daily. The patient stopped the medications about 10 days ago as she felt it was making her more anxious and more suicidal. She also felt that she had a severe panic attack while on the Zoloft. Since stopping Zoloft her nausea resolved but she is still had 2 panic attacks in the past 10 days. Her mood is depressed but possibly slightly better. The patient is a difficult historian. She denies using any alcohol or drugs in recent weeks. She does admit to having urges to self-harm by scratching which is her usual method. She scratched herself 3 days ago but there was no bleeding. She admits to passive, fleeting suicidal ideation daily. She also agrees has passive thoughts of . She still feels hopeless and worthless. Sometimes at night she cries. She denies any plan for suicide, active suicidal ideation, homicidal ideation, hallucinations or delusions. She is sleeping about 6 hours a night or so. Her brother takes Zoloft and she states and does well on it but her mother takes a medicine that starts with an L but she is uncertain of the name. Current Psychiatric Medications: [] Zoloft 50 mg p.o. daily (discontinued 10 days ago); vitamin D 50,000 IU p.o. weekly. Mental Status Examination: [] Patient is a 20-year-old female who appears normal for stated age and is seen wearing a mask due to the pandemic. She is casually dressed and groomed with good hygiene. Eye contact is good and speech is normal rate and rhythm and fluent with no pressure. Mood is depressed. Affect is constricted. Thought process is goal-directed and organized. Thought content: There is evidence of fleeting, passive suicidal ideation. There is evidence of passive thoughts of . There is evidence of urges to self-harm with the most recent episode being a superficial scratch 3 days ago. There is no evidence of homicidal ideation, plan for suicide, active suicidal ideation, hallucinations or delusions. Insight is limited. Judgment is intact. Impulsivity is high. Diagnoses: [] 1. Major depressive disorder, recurrent, severe without psychosis 2. Social anxiety disorder 3. Generalized anxiety disorder 4. Cluster B traits 5. Primary support and school issues Plan: [] The patient will continue the IOP program at [facility] as the structure, support, education and group therapy will hopefully prevent worsening of the patient's symptoms. She felt safe during the interview and if it anytime she does not feel safe she agrees to let us know or go to the emergency room. The risks, options, possible complications and side effects of the medications were again discussed with the patient and she understands and accepts these. The patient agreed to try Lexapro 5 mg p.o. daily and a prescription was sent in for this #30 with 0 refills. I will see the patient in follow-up in 1 to 2 weeks and she will continue to follow-up with her outpatient psychiatric and medical providers.
--- NOTE | 2020-08-25 14:48 | BH.MDN ---
Multi-Disciplinary Note - Note 45-min Individual Time Started:: 11:35 Date: 08/25/20 Purpose of session/treatment goals addressed:: To review strategies to help client manage depressive and anxiety symptoms. To help client have more informed decision-making. Another goal to was discuss aftercare options. Eye Contact:: Good Motor Activity:: Appropriate Appearance:: Neat Speech:: Appropriate Mood:: Euthymic Affect:: Congruent Thoughts:: Linear, Logical, No evidence of hallucinations/delusions noted Staff Interventions:: Therapist used active listening and open-ended questions to explore client's current symptoms, stressors, and progress. Therapist reviewed coping skills to help manage negative thoughts, anxiety, and depressive symptoms that make client want to isolate. Therapist gave client resources for outpatient therapy. Therapist also gave client homework to complete a decisional-balance worksheet. Client Response:: Client responded well to session, open to meeting with therapist. Client stated she got her medication changed today and client hopes that helps better manage her anxiety. Client continues to report negative, existential thoughts on occasion, but she reports this week she is doing better at challenging them. Client is feeling excited about going back to school, but client feels anxious about finishing exams for the classes she had to make up this summer. Discussed waht would be the best balance for client and she is to complete a decisional balance for homework. Client recognizes that she is getting close to discharging from IOP tx, but client feels anxious about leaving the supportive environment. Discussed the importance of aftercare and client admits she has not set up outpatient counseling. Client did pick a therapist from the list this therapist provided client. Client will call to set up an appointment by the end of the week. Risks/Concerns:: Client denies any active suicidal ideations, plan, or intent as of 08/25/20. Progress Toward Goals/Plan:: Client was switched to a different medication today which will hopefully help reduce client's anxiety and recent panic symptoms. Client has also reported fleeting suicidal ideations within the last week and prior to last week, client had been reporting reduced SI. Client has made progress in increased self-awareness, reaching out to supports, and using healthy coping skills. Client will continue IOP tx for two more weeks to monitor her medication changes, further improve mood stability, and combat distortions. Time Stopped:: 12:20
--- NOTE | 2020-08-26 09:01 | BH.SGPN.GN ---
Behaviors/Verbalizations/Mental Status: []Pt eye contact good, casually dressed, motor activity appropriate, speech normal rate and tone, mood anxious, congruent affect, thoughts linear and intact, no evidence of delusions or hallucinations. Reviewed client?s symptom tracker, pt indicates a 2/5, with 5 being severe, for suicidal thoughts and a 0/5 for suicidal intent. This is below pt's suicidal baseline for suicidal thoughts. Client Response/Progress/Benefit: []Pt responded well to session AEB pt listening attentively to peers, and openly sharing thoughts and feelings. Pt stated mental health positive as being able to manage panic like symptoms by drawing and coloring. Pt reported typically she doesn't use any skills when she notices panic symptoms, just usually sits there and is miserable. Pt stated stressor is getting ready to go back to college. Pt stated feeling anxious about having to move back to campus. Pt identified feeling calm this morning. Pt is to continue IOP to maintain gains, continue challenging distorted thoughts and prevent decompensation. Narrative Note: []
--- NOTE | 2020-08-26 10:02 | BH.SGPN.GN ---
Behaviors/Verbalizations/Mental Status: [] Eye contact is fair to good. Motor activity is appropriate. Appearance is casual. Speech is Appropriate. Mood is anxious and euthymic. Affect is congruent. Thoughts are linear and logical. No evidence of psychosis. Client Response/Progress/Benefit: [] Pt was an attentive participant in group discussion and actively engaged during activity. Attentive during psychoeducation and taking notes. Reflected connecting with topic of personal pitfalls and how they can impede mental health treatment progress. Pt mostly passive, though listening as peers provided examples of personal pitfalls or setbacks that impact mental health which included; isolation, avoidance, procrastination, denial, poor self-care, and ruminating on externals. During experiential activity pt along with peers identified several pitfalls from the activity that are also associated with mental health which included; poor communication, assumptions, lack of awareness, negative self-talk, fear of failure, and personalizing. Did well to engage more during this. Benefited from group by increasing awareness of pitfalls which can impact mental health. Pt will continue in IOP to prevent decompensation, maintain gains and further improve mood stability, and continue to promote healthy skill application. Narrative Note: []
--- NOTE | 2020-08-26 11:00 | BH.SGPN.GN ---
Behaviors/Verbalizations/Mental Status: []Client alert and oriented, casually dressed and groomed. Eye contact good. Motor activity appropriate. Speech within normal limits. Affect constricted, mood euthymic. Thoughts linear, logical, no signs of hallucinations or delusions. Client Response/Progress/Benefit: []Client receptive of session, engaged throughout AEB client actively listening and contributing to discussion, as well as taking notes. Client completed worksheet identifying personal pitfalls impacting mental health progress. Client identified the following pitfalls: cognitive distortions, minimizing, avoidance, and not doing things she enjoys. Client reports since starting IOP tx she has gotten better at acknowledging pitfalls and using coping skills in the moment. Group learned different coping skills to help manage pitfalls. Client will work on overcoming minimizing by asking her supports to ?reality check me.? Benefited from identifying personal pitfalls and strategies to overcome these pitfalls. Will continue IOP tx to monitor medication change and promote mood stability. Narrative Note: []
--- NOTE | 2020-08-31 10:16 | BH.SGPN.GN ---
Behaviors/Verbalizations/Mental Status: [] Client alert and oriented, neat and casually dressed and groomed. Eye contact good. Motor activity appropriate. Speech within normal limits. Affect congruent, mood anxious. Thoughts linear, logical, no signs of hallucinations or delusions. Client Response/Progress/Benefit: [] Pt actively engaged in group discussion on conflict and the potential benefits of healthy approaches to conflict on mental health as well as barriers in taking a healthy approach to conflict resolution. Pt connected to fellow participants as they reflected on quote. Shared ?Fear of other people?s response or additional conflict? has been a barrier in addressing potential conflict for her in the past. Pt attentive and engaged during psychoeducation about different conflict styles (avoidant, accommodating, cooperative, and competing). Pt identified most often uses accommodating and avoiding styles for conflict, noting this often results in ?beating myself up for not valuing my own thoughts?. Seemed to benefit from increased awareness of the different conflict styles. Pt to continue IOP to continue use of healthy coping skills, continue improving mood stability and social skills, and prevent decompensation. Narrative Note: []
--- NOTE | 2020-08-31 11:15 | BH.SGPN.GN ---
Behaviors/Verbalizations/Mental Status: []Client alert and oriented, neatly dressed and groomed. Eye contact good. Motor activity appropriate. Speech within normal limits. Affect congruent, mood dysthymic. Thoughts linear, logical, no signs of hallucinations or delusions. Client Response/Progress/Benefit: []Client engaged in session AEB contributing to discussion and engaging in activity. Client did well to review current conflict style and its impact on mental health. Attentive and taking notes during discussion on strategies for more effectively managing conflict in personal life. Client identified that she continues to struggle with avoiding conflict or accommodating to others people?s needs. Client recognizes she has improved in dealing with internal conflict. Client would like to get better at being more assertive with her emotions and needs. Client wants to work on changing this by expressing her feelings with words and not shutting down during conflict. Appeared to benefit from gaining strategies to help client better manage conflict. Will continue IOP tx to improve overall mood stability, promote the use of healthy coping skills, and increase self-confidence. Narrative Note: []
--- NOTE | 2020-08-31 13:39 | BH.MDN_ITS ---
Multi-Disciplinary Note - Note 45-min Individual Time Started:: 09:25 Date: 08/31/20 Purpose of session/treatment goals addressed:: To work on goal #1 objective #2 of client's TX plan. Another goal was to create a plan for mental health care to reduce client's anxiety about upcoming discharge. Eye Contact:: Good Motor Activity:: Appropriate Appearance:: Casual Speech:: Soft Mood:: Dysthymic Affect:: Congruent Thoughts:: Circular, No evidence of hallucinations/delusions noted Staff Interventions:: Therapist used cognitive restructuring techniques to help client identify and combat distorted thought patterns reinforcing depression and anxiety. Therapist encouraged client to use thought challenging techniques in the moment to combat minimization. Therapist helped client come up with a care plan to help reduce client's anxiety about discharge. Therapist encouraged client to set healthy boundaries and practice self-advocacy with her friends. Client Response:: Client responded well to session, open to meeting with mercedez sargent. Client reports that she is feeling more down today, but client does not know the trigger. Client has a tendency to minimize her progress and disqualify her positives. After further exploration of mood and client's weekend, client disclosed several positives. Client admits that she has unrealistic expectations for herself which leads to client using should statements. Client shared I shouldn't be relying on my parents at this age...I should be able to exercise consistently...I should be making money right now. Client acknowledges she is using distorted thought patterns and was receptive to challenging these using reframing. Client willing to work more on reframing for homework as well. Discussed potential benefits of client reaching out to her friend for accountability in identifying positives. Client also shared she is also struggling with setting boundaries with friends from high school. Processed barriers and emotions around boundary setting. Client feels like she will have better boundaries when she moves back to school as the physical distance will help. Client expresses anxiety about discharging from [facility] [place] and not having the structure/support. Able to thought challenge some of her anxiety and discussed the benefit of joining a support group at school in addition to outpatient counseling. Risks/Concerns:: Client reports passive, fleeting SI that is chronic, but client denies any active suicidal ideations, plan, or intent as of 08/31/20. Client is future oriented about school and reports ability to maintain safety. Progress Toward Goals/Plan:: Client is making progress towards her treatment goals, but client continues to struggle with acknowledging progress. Client reports ongoing anxiety, depressive symptoms, and some thoughts about life is pointless but admits that the symptoms are reduced than when she started IOP. Client has also been consistently using healthy coping skills such as exercising, opposite action, taking walks, and journaling. Client will continue IOP tx to further challenge distortions and improve emotional regulation skills. Time Stopped:: 10:05
--- NOTE | 2020-09-02 09:00 | BH.SGPN.GN ---
Behaviors/Verbalizations/Mental Status: []Pt eye contact good, casually dressed, motor activity appropriate, speech normal rate and tone, mood euthymic, congruent affect, thoughts linear and intact, no evidence of delusions or hallucinations. Reviewed client?s symptom tracker indicated a 1/5 for suicidal ideation, with 5 being severe, and a 0/5 for suicidal intention. This is below client's baseline. Client Response/Progress/Benefit: Pt responded well to session AEB pt openly sharing thoughts and listening attentively to others. Pt identified mental health positive as going out with a friend two times over the last week. Pt shared she also did better to guide the conversation when with a high school friend. Pt stated usually the conversation with this friend is about the past which can be triggering so this time pt guided the discussion about the here and now. Pt reported she had a more enjoyable time with this friend and was less anxious. Pt stated additional positive as completing her chemistry work for school. Stated she is feeling anxious about what her orthopedic doctor is going to say about the progress of her knee. Pt seemed to benefit from expresses thoughts and feelings. Pt to continue IOP to maintain gains, continue challenging negative thoughts and prevent decompensation. Narrative Note: []
--- NOTE | 2020-09-02 10:10 | BH.SGPN.GN ---
Behaviors/Verbalizations/Mental Status: [] Eye contact is good. Motor activity is appropriate. Appearance is casual. Speech is Appropriate. Mood is depressed. Affect is flat. Thoughts are linear and logical. No evidence of psychosis Client Response/Progress/Benefit: [] Pt participated at times during the group discussion. Active participant in group activity. Attentive during psychoeducation on the 5 stages of change. Pt provided insight while group worked to identify barriers to change which included; being complacent, fear of the unknown, being uncomfortable, fearful that any change will be overwhelming, accustomed to current life, and knowing what to expect (even if its negative) is comfortable. During activity group processed emotions commonly associated with change along with her peers. Emotions processed were exhausted, cautious, hopeful, frustrated, overwhelmed, confident, frightened, relief, and excitement. Benefited from increase awareness of the emotions associated with change and how these emotions can encourage or disrupt change. Will continue in IOP to maintain gains, increase healthy coping, and improve functioning to return to work. Narrative Note: []
--- NOTE | 2020-09-02 11:12 | BH.SGPN.GN ---
Behaviors/Verbalizations/Mental Status: []Client alert and oriented, casually dressed and groomed. Eye contact good. Motor activity appropriate. Speech within normal limits. Affect congruent, mood euthymic. Thoughts linear, logical, no signs of hallucinations or delusions. Client Response/Progress/Benefit: []Client was an active participant, contributing to discussion and participating in the activity. Client participated during discussion and psychoeducation on the stages of change. Client reports she wants to work on being more self-compassionate and reducing negative self-talk. Client reports belief she is in the preparation stage as client has made some small steps. Client identified her personal barriers such as feeling undeserving, should thoughts, and telling herself that she does not deserve happiness. Client stated when these barriers arise, client will reach out to supports. Appeared to benefit from reflecting on the stages of change and the progress client has made. Will continue IOP tx to promote mood stability, further improve functioning, and increase self-confidence. Narrative Note: []
--- NOTE | 2020-09-07 09:00 | BH.SGPN.GN ---
Behaviors/Verbalizations/Mental Status: [] Eye contact is good. Motor activity is appropriate. Appearance is neat. Speech is Appropriate. Mood is depressed. Affect is flat. Thoughts are linear and logical. No evidence of psychosis. Reviewed daily check in sheet and pt reports 2/5 for suicidal thoughts and 0/5 for intent. Client Response/Progress/Benefit: [] Pt participated at times during the group. Attentive. Daily symptom tracker notes 3/5 for depression and 2/5 for anxiety and irritability. Emotion for today is anxious. Mental health wins include making plans with peers, utilizing skills, and reaching out to professor. She continues to utilize a great deal of distraction skills for only work for a limited time. Reports her emotions are all over with increase irritability. Significant changes upcoming (going back to college, moving in with peers, getting dc's from IOP) which is anxiety producing. Insight that anxiety is appropriate reaction to change. Able to see benefits. Limited benefit per pt report. Benefited from group support, encouragement, and feedback. Will continue in IOP to maintain gains and prevent decompensation. Narrative Note: []
--- NOTE | 2020-09-07 10:08 | BH.SGPN.GN ---
Behaviors/Verbalizations/Mental Status: []Client alert and oriented, neatly dressed and groomed. Eye contact good. Motor activity appropriate. Speech within normal limits. Affect constricted, mood euthymic. Thoughts linear, logical, no signs of hallucinations or delusions. Client Response/Progress/Benefit: []Client responded well to session, attentive and contributing to discussion. Group discussed potential barriers to communication including: yelling, shutting down, passive-aggressive behaviors, and mind-reading. Client stated she will sometimes use the ?silent treatment? which leads to her mother ?asking me a million questions? and causes frustration for client. Helped group identified positives of having effective communication skills. Attentive during psychoeducation on the four communication styles. Client reported she most often uses passive and passive-aggressive communication styles. Able to recognize negative outcomes of communication style such as being stuck with the same problems. Seemed to benefit from increased awareness of the different communication styles and identify personal communication style. Client to continue in [facility] tx to establish aftercare and discharge later this week. Narrative Note: []
--- NOTE | 2020-09-07 11:08 | BH.SGPN.GN ---
Behaviors/Verbalizations/Mental Status: []Client alert and oriented, casually dressed and appropriately groomed. Eye contact good. Motor activity appropriate. Speech WNL. Affect congruent, mood euthymic. Thoughts linear, logical, no signs of hallucinations or delusions. Client Response/Progress/Benefit: []Client responded well to session AEB client listening attentively to others and providing input during group discussion on the pay offs and costs of the different communication styles. Attentive during psychoeducation on interpersonal DBT skill CARLOS and client selected a communication skill to practice. Client selected the skill of mindfulness to stay focused on the current discussion point versus bringing up the past.Client seemed to benefit from increasing awareness of healthy strategies to improve communication. Progress noted with pt reporting improved mood and following through with plans with supports. Will continue IOP tx to maintain gains and prevent decompensation.
--- NOTE | 2020-09-09 08:55 | BH.SGPN.GN ---
Behaviors/Verbalizations/Mental Status: []Eye contact is good. Motor activity is appropriate. Appearance is neat and casual. Speech is Appropriate. Mood is euthymic and anxious. Affect is congruent. Thoughts are linear and logical. No evidence of psychosis. Reviewed daily check in sheet and client reports of suicidal ideations are 1/5 which is below typical baseline, denies plan or intent. Client Response/Progress/Benefit: []Pt was an attentive participant AEB actively listening as well as willingness to process with group. Client reports emotion for the day as ?every emotion? and indicated that this is due to it being her last day in the IOP program. Client shared feeling excited to successfully complete treatment but is also nervous about not having the support of the group anymore. Discussed several areas in which she feels she ahs made progress such as setting boundaries, thought challenging, and self-care. Client noted it will be most important for her to remind herself to challenge negative thoughts moving forward as well as revisit the notes taken throughout IOP groups. Benefited from group support, encouragement, and feedback. Will continue with outpatient treatment following IOP discharge to maintain gains, continue to promote healthy coping behaviors, and prevent decompensation. Narrative Note: []
--- NOTE | 2020-09-09 10:00 | BH.SGPN.GN ---
Behaviors/Verbalizations/Mental Status: [] Eye contact is good. Motor activity is appropriate. Appearance is casual. Speech is Appropriate. Mood is euthymic. Affect is full. Thoughts are linear and logical. No evidence of psychosis Client Response/Progress/Benefit: [] Pt was an active participant in group discussion and activity. Attentive during psychoeducation. Pt marvin both her current an desired reality and shared with the group. Her current reality depicted her sliding down a waterslide which is a good thing as the waterslide signifies her mental health struggles. States that being on the waterslide is better than standing at the top overwhelmed and fearful. She is outside her comfort zone and able to address some of her obstacles such as self-hate and depression. While she is not at the end of the waterslide she feels on her way. Her desired reality would be reaching the end of the waterslide and being hopeful and optimisitic about herself. Benefited from increased awareness of current mental state and goals. Pt will be discharged from [facility] today. Narrative Note: []
--- NOTE | 2020-09-09 11:10 | BH.SGPN.GN ---
Behaviors/Verbalizations/Mental Status: []Client alert and oriented, casual dress, hygiene tended to. Eye contact good. Motor activity appropriate. Speech within normal limits. Affect congruent, mood euthymic. Thoughts linear, logical, no signs of hallucinations or delusions. Client Response/Progress/Benefit: []Client engaged during activity and provided ideas on how to cope with internal barriers that keep clients stuck from moving towards goals. Client able to identify barriers to desired reality. Identified barriers to current reality to include: comfort zone, self-sabotage, isolation, poor boundaries, negative self-talk. Client stated she is going to work on negative self-talk by using positive affirmations daily.. Benefited from group by identifying obstacles and solutions to desired reality. Pt has made significant progress since starting IOP and will discharge today.
--- NOTE | 2020-09-09 11:49 | BH.AFTERPLAN ---
Aftercare Plan - Demographics Treatment End Date:: 09/09/20 Psychiatrist:: Yolanda Barrett Psychiatrist Office #:: [id number] [facility] [place] Therapist:: Ramila Steiner Therapist Phone #:: [phone] - Plan Details Progress/Aftercare Plan Details:: Yuliet has made significant strides since starting IOP as shown by her reduced symptoms, increased self-awareness, and overall improved ability to manage emotions and daily stressors. When Yuliet started IOP she was struggling with managing her emotions and challenging negative thinking. Now, Yuliet is actively using healthy coping skills, using more positive self-talk, using the awareness she has gained to manage her emotions, and practicing self-reflection on a daily basis. Yuliet contributed to group discussions, offered emotional support to peers, and consistently followed through with her goals. In individual sessions, Yuliet was receptive to feedback, consistent with homework, and willing to push herself. Yuliet showed resilience each day she came to [facility] and was very receptive to learning. Yuliet?s DSM-5 scores decreased overall by several points. Thoughts of actually hurting herself decreased by 33% and anxiety decreased by 25%. Strategies for Success:: 1. Challenge those junk thoughts!! Remember that thoughts are thoughts NOT facts! 2. Self-compassion. You can make progress AND make mistakes because you are human. 3. Self-care... not just the fun stuff! remember to set boundaries too. 4. Keep up with journaling! And remember to review your daily positives. 5. Reach out to support, even when you don't want to... yep I said it! 6. Consistency! Coping skills form like any other skill or habit... with practice! 7. Breathe, listen to music, ground yourself. 8. Go outside and sit or walk or look at the stars. 9. Remember you do not have to know all the reasons or know the purpose to enjoy the ride or make positive impacts. 10. Give yourself lots of credit! - Appointments Appointments/Referrals to Other Services:: 1. Follow up with PCP for medications. 2. Follow up with the student groups at [facility]. 3. Counseling options: [facility] counseling services in [facility] OR [facility] [address] [place] [address]., [address]. [place] [address] OR [facility]. [address] [place] [address]. [place], [place] [address] . - Medications Home Medications: Home Medications ergocalciferol (vitamin D2) [Vitamin D2] 1,250 mcg PO QWEEK #14 cap 07/21/20 escitalopram oxalate [Lexapro] 5 mg PO DAILY 30 Days #30 tab 08/25/20
--- NOTE | 2020-09-10 08:09 | BH.MDN_ITS ---
Multi-Disciplinary Note - Note 45-min Individual Time Started:: 12:15 Date: 09/09/20 Purpose of session/treatment goals addressed:: The purpose of this session was to review client's progress and review strategies that will promote mood stability and gains made in [facility]. Another goal was to discuss discharge recommendations and process any current stressors. Eye Contact:: Good Motor Activity:: Restless Appearance:: Neat Speech:: Rambling, Soft Mood:: Anxious Affect:: Constricted Thoughts:: Circular, No evidence of hallucinations/delusions noted Staff Interventions:: Therapist used open-ended questions to explore client's thoughts on personal progress. Therapist also provided emotional support and helped client problem-solve current stressors. Therapist reviewed supports and coping skills with client to promote gains and prevent setbacks. Therapist discussed aftercare plan with client and used strengths-perspective to empower client on the goals client has accomplished. Therapist discussed the benefits of ongoing maintenance and use of daily coping skills. Therapist gave client a quote collage for closure. Client Response:: Client responded well to session, open to meeting with therapist. Client reports she is sad to be leaving [facility] as she has come to feel connected and safe here. Client stated her biggest area of personal growth was becoming more social and less anxious around others. Client reflected on how much more confident she is with sharing her thoughts in a group setting. Client also reflected on her improved ability to challenge distortions and use healthier coping skills. Client shared she is anxious about leaving the program and still feels worried about coping in the future. Client shared what happens when the coping skills don't work like yesterday. Receptive to thought challenging and reminding herself that progress is not linear. Client completed her maintenance plan which included triggers, warning signs, and coping skills to help client manage anxiety, depressive, and apathy in the future. Reviewed aftercare plan and client has called her college to get on the list for peer support classes for mental health in the fall. Risks/Concerns:: Client denies any active suicidal ideations, plan, or intent as of 09/09/20. Future oriented. Progress Toward Goals/Plan:: Client has responded well to treatment and has made great progress while in IOP AEB her DSM-5 score reduction and self-report. Client self-reports feeling excited about school, reduced severity of symptoms, improved functioning, and increased self-confidence. Client reports increased ability to manage her emotions and challenge negative thoughts. Client still endorses moderate anxiety and depression, but she reports increased confidence to manage these symptoms and has hope for the future. Client will discharge and begin outpatient therapy when she goes back to college next week. Client was provided with several options for therapists on campus and off campus. Time Stopped:: 13:00
--- NOTE | 2020-09-10 08:25 | BH.DS ---
Discharge Summary - Demographics Date of Admission:: 07/13/20 Discharge Date: 09/09/20 Presenting Problems at Admission:: Client is a 20-year-old female with a history of depression and anxiety. Client was referred to [facility] tx by her family due to worsening depression for the past two months. At admission, client endorsed poor sleep, poor concentration, rumination, and thoughts of most days. Client tore her ACL in April of this year and had surgery which further exacerbated her depression and anxiety. Client had not been as active and was sleeping/isolating most days. Mental health was impacting client's grades in college, her socialization, and her overall functioning. 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 Client no longer meets criteria for [facility] level of care and will transition to outpatient counseling. - Treatment Progress During Treatment & Response: Client?s DSM-5 scores only decreased by 7% from admission to discharge, however, most of client?s progress was in reduced isolation, application of coping skills, and improved engagement in social settings. Client?s anxiety decreased by 25% and client self-reported that feeling more comfortable and confident speaking in a group was her biggest area of growth. Client shared at discharge that she felt much less social anxiety. Client?s DSM-5 scores for depression did not decrease, but client?s thoughts of actually hurting herself did decrease by 33%. Additionally, by discharge, client was consistently reporting using opposite action, journaling daily, exercising, and reaching out to supports. Client was an active participant and did well in group and individual settings. Issues Still to be Addressed:: Client can continue to benefit from ongoing counseling to reinforce healthy coping skills as well as further combat distorted thought patterns. Client struggles with minimizing, should statements, and all or nothing thinking that in the past has triggered depression and isolation. Client would also like to work on being okay with being alone and self-love. Client can benefit from further increasing her social supports and using opposite action. Discharge Recommendations/Instructions:: Client will continue seeing her PCP for medication management. Client attempted to get telehealth counseling from a provider in [place], but client decided to get in person counseling near her college. Client was provided options for counseling on [place] at [facility] as well as two other local counseling agencies. Client also plans to join the university?s mental health groups for students in the fall. Discharge Handout: Complete Discharge Handout with client on aftercare options and continuity of care.
== END 2020-09-09 13:44 | disposition home or self-care (01) ==
LOC: BHIOP 08:23
PROVIDERS: PCP Pediatrics; Referring Provider Psychiatry & Neurology Psychiatry; Visit Provider Psychiatry & Neurology Psychiatry
DX: F33.2 Major depressive disorder, recurrent severe without psychotic features (principal); F41.8 Other specified anxiety disorders; F41.1 Generalized anxiety disorder; Z79.899 Other long term (current) drug therapy
CPT/HCPCS: S9480; 90834; 90837; 90853

== ENCOUNTER 2020-09-09 15:00 | Outpatient (RCR) | payer BC, SELFPAY ==
[2020-06-24 10:04] VITALS: BMI 23.5
--- NOTE | 2020-06-29 12:25 | HP.PTEVAL_ITS ---
Patient's Visit Information VASQUEZ MARIE is a 20 year old F referred to Physical Therapy by Dr. Susana Nathan DO with a diagnosis of Left ACL repair with quad tendon auto graft 06/11/2020. Date of Evaluation: 06/29/20 Physical Therapist: Shasta Yuen DPT - Visit Plan Frequency: 3x /Week Duration: 4 Weeks Plan: Left ACL repair with quad tendon auto graft 06/11/2020. Follow Protocol in folder. HEP Given IE: TKE, quad set, SLR, seated and supine heel slide and bolster extn stretch - Subjective Patient reports that she tore her ACL in soccer in April- non contact. 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 ACL reconstruction with a quad tendon graft. June 11, [address] Nathan. She reports that she is getting better. She was NWB for the first few weeks. She was allowed to be WBAT starting 06/24/2020- brace must be locked into extension as she is up and moving. She has been working on extension. She is not having any pain in the knee at this point. Report no N/T. No hip/ankle or back pains. No images since surgery. 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 This is her first major injury. Sleep: not disturbed- wears the brace to sleep. She does lift with her team prior to injury- fall sport in college. Does not plan to play this fall. PMHx: none Meds: none. - Objective Posture: FH, RS- can correct with verbal cues. Gait: antalgic- decreased stance on the left LE with poor heel/toe pattern with decreased ROM- TROM brace. SLS: weight shift but unable to SLS. TKE: quad set visible but minimal. Girth: 6 above Left: 47 cm Right: 51 cm Patella: Left: 37 cm Right: 34.5 cm. ROM: 0-70 degrees. Strength: Ankle: 5/5, Quad set visible- SLR moderate lag, Hip: 4+/5 throughout Core: fair plus. Flex: HS: severe, Gastroc: moderate. Observation: incision healing well- moderate edema- no s/s of infection - Goals Goal 1:: Patient will be I with HEP and progression Goal Time Frame: 4-6 Weeks Goal 2:: Patient will ambulate >300 feet with a normalized gait pattern Goal Time Frame: 4-6 Weeks Goal 3:: Patient quad girth will be equal 6 above patella Goal Time Frame: 4-6 Weeks Goal 4:: Patient will SLS for 30 sec without LOB Goal Time Frame: 4-6 Weeks Goal 5:: Patient will demo 0-135 degrees of ROM in the right knee Goal Time Frame: 4-6 Weeks - Rehabilitation Potential Physical Therapy Diagnosis: Patient presents s/p ACL reconstruction- she has decreased ROM,strength, flex, proprioception and functional mobility leading to abnormal gait and inability to perform ADL's. - Anticipated Interventions Patient/Client Instruction: Educate patient on: Benefits of Fitness Program Therapeutic Exercise to Include: Strength training, Endurance training, Balance training, Agility training, Body mechanics, Postural training, Flexibilty training, Gait and locomotor training, Neuromotor development, Passive ROM, Active ROM, Dynamic Lumbar Stabilization, Scapular Strength/Stabilization For the Purpose of:: To improve muscle performance and motor function TENS: Yes Cryotherapy (ice pack, ice massage): Yes Thermo therapy (hot pack): Yes Vasopneumatic device: Yes For the Purpose of:: To decrease swelling/inflammation, To increase ROM Thank you for the opportunity to evaluate your patient. For Medicare and Medicare HMO plans, please review the plan of care and approve it. It will need to be FAXED BACK to us at [phone] for Medicare purposes. For Medicare only, by signing this I certify the plan of care. Please let me know if there are questions or concerns regarding this plan of care. Physician Signature: Date:
--- NOTE | 2020-07-26 15:04 | HP.PTREVAL ---
Dr. Susana Nathan, DO, It has been my pleasure to treat VASQUEZ MARIE over the last 9 visits for Left ACL repair with quad tendon auto graft 06/11/2020. Please see the progress note below for an update on the physical therapy plan of care! Subjective: Patient reports that she is doing great- saw who was really happy with progress Objective/Function: Gait: slightly antalgic- decrease heel strike-. ROM: 0-130 degrees. Girth: Left: 47.5 cm Right: 50 cm. Strength: Right Extn: 48, 49 Left Extn: 30, 26 Right Flexion: 45, 48 Left Flexion: 28, 24 Plan Plan: 07/26/2020:Continue with POC 2x a week for 4 weeks- progressed HEP: step ups, sit to stands and eccentric heel raise. Left ACL repair with quad tendon auto graft 06/11/2020. Follow Protocol in folder. HEP Given IE: TKE, quad set, SLR, seated and supine heel slide and bolster extn stretch Goals Goal 1:: Patient will be I with HEP and progression Goal Time Frame: 4-6 Weeks Goal Progress: Progressing Goal 2:: Patient will ambulate >300 feet with a normalized gait pattern Goal Time Frame: 4-6 Weeks Goal Progress: Progressing Goal 3:: Patient quad girth will be equal 6 above patella Goal Time Frame: 4-6 Weeks Goal Progress: Progressing Goal 4:: Patient will SLS for 30 sec without LOB Goal Time Frame: 4-6 Weeks Goal Progress: Progressing Goal 5:: Patient will demo 0-135 degrees of ROM in the right knee Goal Time Frame: 4-6 Weeks Goal Progress: Goal Met Anticipated Interventions Patient/Client Instruction: Educate patient on: Benefits of Fitness Program Therapeutic Exercise to Include: Strength training, Endurance training, Balance training, Agility training, Body mechanics, Postural training, Flexibilty training, Gait and locomotor training, Neuromotor development, Passive ROM, Active ROM, Dynamic Lumbar Stabilization, Scapular Strength/Stabilization For the Purpose of:: To improve muscle performance and motor function TENS: Yes Cryotherapy (ice pack, ice massage): Yes Thermo therapy (hot pack): Yes Vasopneumatic device: Yes For the Purpose of:: To decrease swelling/inflammation, To increase ROM Please do not hesitate to contact me at [phone] by phone or if you have questions or concerns regarding this new plan of care! Sincerely, SARBJIT DollT
--- NOTE | 2020-08-23 14:40 | HP.PTREVAL ---
Dr. Susana Nathan, DO, It has been my pleasure to treat VASQUEZ MARIE over the last 16 visits for Left ACL repair with quad tendon auto graft 06/11/2020. Please see the progress note below for an update on the physical therapy plan of care! Subjective: Patient reports that she is getting better- no real surgical pain at this point- more just muscle soreness. If she walks for to long she has to be careful because it gets tired then she gets sore. She ordered a brace online if she is going to be walking for long distances which really helps. Objective/Function: Gait: no deviation ROM: 0-130 degrees. Girth: 36 cm at Patella 6 above: Left: 50 cm cm Right: 51.5 cm. Strength: Right Extn: 68, 64 Left Extn: 46, 52 Right Flexion: 67, 61 Left Flexion: 34, 36. Squat: mild deviation Plan Plan: 07/26/2020:Continue with POC 2x a week for 4 weeks- progressed HEP: step ups, sit to stands and eccentric heel raise. Left ACL repair with quad tendon auto graft 06/11/2020. Follow Protocol in folder. HEP Given IE: TKE, quad set, SLR, seated and supine heel slide and bolster extn stretch Goals Goal 1:: Patient will be I with HEP and progression Goal Time Frame: 4-6 Weeks Goal Progress: Progressing Goal 2:: Patient will ambulate >300 feet with a normalized gait pattern Goal Time Frame: 4-6 Weeks Goal Progress: Progressing Goal 3:: Patient quad girth will be equal 6 above patella Goal Time Frame: 4-6 Weeks Goal Progress: Progressing Goal 4:: Patient will SLS for 30 sec without LOB Goal Time Frame: 4-6 Weeks Goal Progress: Progressing Goal 5:: Patient will demo 0-135 degrees of ROM in the right knee Goal Time Frame: 4-6 Weeks Goal Progress: Goal Met Anticipated Interventions Patient/Client Instruction: Educate patient on: Benefits of Fitness Program Therapeutic Exercise to Include: Strength training, Endurance training, Balance training, Agility training, Body mechanics, Postural training, Flexibilty training, Gait and locomotor training, Neuromotor development, Passive ROM, Active ROM, Dynamic Lumbar Stabilization, Scapular Strength/Stabilization For the Purpose of:: To improve muscle performance and motor function TENS: Yes Cryotherapy (ice pack, ice massage): Yes Thermo therapy (hot pack): Yes Vasopneumatic device: Yes For the Purpose of:: To decrease swelling/inflammation, To increase ROM Please do not hesitate to contact me at [phone] by phone or if you have questions or concerns regarding this new plan of care! Sincerely, SARBJIT DollT
--- NOTE | 2020-09-09 16:06 | HP.PTDCSUM ---
It has been my pleasure to treat VASQUEZ MARIE referred by Dr. Susana Nathan DO, with the diagnosis of Left ACL repair with quad tendon auto graft 06/11/2020 for a total of 22 visit(s). Discharge Date: Please see the following information for a summary of their discharge status. Subjective: Patient reports that the knee is doing good. Pain level 5/10 today when she came into the clinic- better now. Pain is along the incisions area. Left Knee Pain Intensity (Out of 10): 5 % Improvement: 70 Objective/Function: Gait: no deviation noted Girth: 36 cm at Patella 6 above: Left: 49.5 cm cm Right: 51.5 cm. Strength: Right Extn: 74 Left Extn: 56, Right Flexion: 58 Left Flexion: 39. ROM:0-130 degrees Goal 1:: Patient will be I with HEP and progression Goal Progress: Progressing Goal 2:: Patient will ambulate >300 feet with a normalized gait pattern Goal Progress: Progressing Goal 3:: Patient quad girth will be equal 6 above patella Goal Progress: Progressing Goal 4:: Patient will SLS for 30 sec without LOB Goal Progress: Progressing Goal 5:: Patient will demo 0-135 degrees of ROM in the right knee Goal Progress: Goal Met Plan: Discharge- return to college If there are questions or concerns regarding this patient's physical therapy, please feel free to call me at [phone]. Thank you for the referral of this patient. Sincerely, Shasta Yuen, DPT Balance/Gait/Functional tests - Balance/Special Test Scores Lower Extremity Functional Score: 54
== END 2020-09-09 19:00 | disposition home or self-care (01) ==
LOC: PT 15:00
PROVIDERS: PCP Pediatrics; Referring Provider Orthopaedic Surgery; Visit Provider Orthopaedic Surgery
DX: Z98.890 Other specified postprocedural states (principal)
CPT/HCPCS: 97014; 97016; 97110; 97161; 97164; G0283

== ENCOUNTER 2021-02-08 10:47 | Outpatient (RCR) | payer BC, SELFPAY | END 2021-02-08 19:00 | disposition home or self-care (01) | LOC: PT 10:47 | PROVIDERS: PCP Pediatrics; Referring Provider Physician Assistant; Visit Provider Physician Assistant | DX: Z47.89 Encounter for other orthopedic aftercare (principal) | CPT/HCPCS: 97164 ==

== ENCOUNTER → 2022-08-02 | Outpatient (CLI) | payer BC, SELFPAY ==
[2022-08-02 16:00] LABS: Anion Gap 3 (5-15); BUN 8 mg/dL (7-18); BUN/Creat Ratio 11.1 RATIO (10-20); Calcium,Total 9.4 mg/dL (8.5-10.1); Chloride 108 mmol/L (98-107); Creatinine, Serum 0.72 mg/dL (0.55-1.02); EST Glomerular Filtration Rate 107 mL/min (>60); Est Glom Filt Rate - Afr Amer 130 mL/min (>60); Glucose 73 mg/dL (74-106); Magnesium 2.1 mg/dL (1.6-2.6); Potassium 3.7 mmol/L (3.5-5.1); Sodium Level 140 mmol/L (136-145); Thyroid Stim Hormone (TSH) 1.87 uIU/mL (0.358-3.74)
== END | disposition home or self-care (01) ==
LOC: LAB 12:26
PROVIDERS: PCP Family Medicine; Referring Provider Internal Medicine Cardiovascular Disease; Visit Provider Internal Medicine Cardiovascular Disease
DX: I47.29 Other ventricular tachycardia (principal)
CPT/HCPCS: 36415; 80048; 83735; 84443

== ENCOUNTER → 2022-08-09 | Outpatient (CLI) | payer BC, SELFPAY | END | disposition home or self-care (01) | LOC: CVS 09:15 | PROVIDERS: PCP Family Medicine; Referring Provider Internal Medicine Cardiovascular Disease; Visit Provider Internal Medicine Cardiovascular Disease | DX: I47.29 Other ventricular tachycardia (principal) | CPT/HCPCS: 93225; 93226 ==

== ENCOUNTER → 2022-11-14 | Outpatient (CLI) | payer BC, SELFPAY | END | disposition home or self-care (01) | LOC: PSN 08:58 | PROVIDERS: PCP Family Medicine; Referring Provider Internal Medicine Cardiovascular Disease; Visit Provider Internal Medicine Cardiovascular Disease | DX: I47.29 Other ventricular tachycardia (principal); I49.3 Ventricular premature depolarization | CPT/HCPCS: 93225; 93226 ==